=== PATIENT | male | born 1960 | race Two or more races ===

== ENCOUNTER 2016-08-25 09:53 | Inpatient (IN) | payer OTHER ==
[2016-08-25 10:46] VITALS: BMI 22.1
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
[2016-08-25] MEDS ORDERED: chlordiazePOXIDE HCL 25 MG CAPSULE PO PRN (13:28)
[2016-08-25] MEDS ORDERED: P-EPHED 60MG/TRIPROLIDI 2.5MG TABLET PO PRN (13:28)
[2016-08-25] MEDS ORDERED: hydrOXYzine PAMOATE 50 MG CAPSULE (FP) PO PRN (13:28)
[2016-08-25] MEDS ORDERED: MAGNESIUM CITRATE 300 ML BOTTLE PO PRN (13:28)
[2016-08-25] MEDS ORDERED: MAG HYDROX/AL HYDROX/SIMETH 30 ML UNIT-DOSE CUP PO PRN (13:28)
[2016-08-25] MEDS ORDERED: chlordiazePOXIDE HCL 25 MG CAPSULE PO ONE (13:28)
[2016-08-25] MEDS ORDERED: MAGNESIUM HYDROX 2400MG/30ML ORAL SUSPENSION 30 ML CUP PO PRN (13:28)
[2016-08-25] MEDS ORDERED: LOPERAMIDE HCL 2 MG CAPSULE PO PRN (13:28)
[2016-08-25] MEDS ORDERED: METHADONE HCL 10 MG TABLET (FOR DETOX USE ONLY) PO ONE ×2 (13:28→23:00)
[2016-08-25] MEDS ORDERED: NICOTINE POLACRILEX 2 MG GUM BC PRN (13:28)
[2016-08-25] MEDS ORDERED: IBUPROFEN 400 MG TABLET (FP) PO PRN (13:28)
[2016-08-25] MEDS ORDERED: ACETAMINOPHEN 325 MG TABLET (FP) PO PRN (13:28)
[2016-08-25] MEDS: NICOTINE 14 MG/24 HOURS TOPICAL PATCH TD SCH (14:15)
[2016-08-25] MEDS: chlordiazePOXIDE HCL 25 MG CAPSULE PO SCH ×2 (17:35→22:25)
[2016-08-25] MEDS: guaiFENesin/D-METHORPHAN HB 10 ML UNIT-DOSE CUPS PO PRN ×2 (17:35→23:46)
[2016-08-25 17:42] LABS: URINE APPEARANCE CLEAR; URINE BILIRUBIN NEGATIVE (NEGATIVE); URINE BLOOD NEGATIVE (NEGATIVE); URINE COLOR DKYELLOW; URINE GLUCOSE (UA) NEGATIVE (NEGATIVE); URINE KETONE TRACE (NEGATIVE); URINE LEUK ESTERASE NEGATIVE (NEGATIVE); URINE NITRITE NEGATIVE (NEGATIVE); URINE PROTEIN 1+ (NEGATIVE); URINE UROBILINOGEN 2.0 E.U/dl E.U./dl (0.2-1.0)
[2016-08-25 17:45] LABS: URINE MUCUS RARE; URINE RBC 3 /hpf (0-3); URINE WBC <1 /hpf (3-5)
--- NOTE | 2016-08-25 18:42 | EKG ---
Test Reason : Blood Pressure : / mmHG Vent. Rate : 071 BPM Atrial Rate : 071 BPM P-R Int : 148 ms QRS Dur : 096 ms QT Int : 392 ms P-R-T Axes : 064 071 059 degrees QTc Int : 425 ms NORMAL SINUS RHYTHM NORMAL ECG NO PREVIOUS ECGS AVAILABLE Confirmed by JESUS AVALOS, FRED ([id number]) on 08/25/2016 6:41:54 PM Referred By: Confirmed By:FRED LEE MD
[2016-08-25] MEDS: diphenhydrAMINE HCL 50 MG CAPSULE PO PRN (22:24)
[2016-08-25] MEDS: THIAMINE HCL 100 MG TABLET (FP) PO SCH (22:24)
[2016-08-26] MEDS: diphenhydrAMINE HCL 50 MG CAPSULE PO PRN ×2 (00:57→22:23)
[2016-08-26] MEDS: chlordiazePOXIDE HCL 25 MG CAPSULE PO SCH ×4 (05:25→22:22)
[2016-08-26] MEDS: guaiFENesin/D-METHORPHAN HB 10 ML UNIT-DOSE CUPS PO PRN ×3 (05:26→22:23)
[2016-08-26] MEDS ORDERED: METHADONE HCL 10 MG TABLET (FOR DETOX USE ONLY) PO SCH (10:00)
[2016-08-26 10:08] LABS: MCH 31.7 pg (25.7-33.7); MCHC 32.6 g/dl (32.0-35.9); MEAN CELL VOLUME 97.2 fl (80-96); MEAN PLT VOLUME 7.9 fl (7.5-11.1); PLATELET COUNT 321 K/MM3 (134-434); RDW 13.5 % (11.9-15.9); WHITE BLOOD COUNT 14.3 K/mm3 (4.0-10.0)
--- NOTE | 2016-08-26 10:18 | PN ---
S CIWA - CIWA Score Nausea/Vomitin Muscle Tremors: 3 Anxiety: 4-Mod. Anxious/Guarded Agitation: 4-Moderately Restless Paroxysmal Sweats: 3 Orientation: 0-Oriented Tacttile Disturbances: 0-None Auditory Disturbances: 0-None Visual Disturbances: 0-None Headache: 0-None Present CIWA-Ar Total Score: 16 BHS COWS - Scale Resting Pulse: 1= [place] 81-100 Sweatin=Flushed/Facial Moisture Restless Observation: 1= Difficult to Sit Still Pupil Size: 0= Normal to Room Light Bone or Joint Aches: 1= Mild Discomfort Runny Nose/ Eye Tearin= Runny Nose/Eyes GI Upset > 30mins: 2= Nausea/Diarrhea Tremor Observation of Outstretched Hands: 2= Slight Tremor Visible Yawning Observation: 1= 1-2x During Session Anxiety or Irritability: 2=Irritable/Anxious Goose Flesh Skin: 0=Smooth Skin COWS Score: 14 S Progress Note (SOAP) Subjective: Anxiety,tremors,sweating,interrupted sleep,restless,nausea,runny nose. Objective: 08/26/16 10:17 Last Vital Signs Temp Pulse Resp BP Pulse Ox 97.4 F L 99 H 20 109/73 08/26/16 09:35 08/26/16 09:35 08/26/16 09:35 08/26/16 09:35 Laboratory Tests 08/25/16 08/26/16 17:29 07:00 WBC 14.3 H D RBC 4.52 Hgb 14.3 Hct 43.9 MCV 97.2 H MCHC 32.6 RDW 13.5 Plt Count 321 MPV 7.9 Urine Color Dkyellow Urine Appearance Clear Urine pH 6.0 Ur Specific [place] 1.025 Urine Protein 1+ H Urine Glucose (UA) Negative Urine Ketones Trace H Urine Blood Negative Urine Nitrite Negative Urine Bilirubin Negative Urine Urobilinogen 2.0 e.u/dl Ur Leukocyte Esterase Negative Urine RBC 3 Urine WBC <1 Urine Mucus Rare labs noted Assessment: 08/26/16 10:17 Withdrawal sx Plan: Continue detox
[2016-08-26 10:31] LABS: ALBUMIN 3.1 g/dl (3.4-5.0); ALK PHOS 77 U/L (45-117); ANION GAP 9 (8-16); CALCIUM 8.7 mg/dL (8.5-10.1); CO2 23 mmol/L (21-32); CREATININE 0.6 mg/dL (0.7-1.3); GLUCOSE,RANDOM 105 mg/dL (74-106); SGOT/AST 47 U/L (15-37); SGPT/ALT 50 U/L (12-78)
[2016-08-26] MEDS: PRENATAL VITAMINS W/ FOLIC ACID TABLET (FP) PO SCH (10:35)
[2016-08-26] MEDS: NICOTINE 14 MG/24 HOURS TOPICAL PATCH TD SCH (10:35)
[2016-08-26] MEDS: cloNIDine HCL 0.1 MG TABLET PO SCH ×2 (10:35→22:23)
[2016-08-26 11:16] LABS: HIV 1 & 2 AB NEGATIVE; HIV 1 AGp24 NEGATIVE
[2016-08-26 13:49] LABS: SICKLE CELL SCREEN NEGATIVE (NEGATIVE)
[2016-08-26] MEDS: THIAMINE HCL 100 MG TABLET (FP) PO SCH (22:22)
[2016-08-27] MEDS: chlordiazePOXIDE HCL 25 MG CAPSULE PO SCH ×2 (05:37→10:19)
[2016-08-27] MEDS: guaiFENesin/D-METHORPHAN HB 10 ML UNIT-DOSE CUPS PO PRN ×3 (05:38→19:17)
--- NOTE | 2016-08-27 10:16 | PN ---
[facility] CIWA - CIWA Score Nausea/Vomitin-No Nausea/No Vomiting Muscle Tremors: 4-Moderate,w/Arms Extend Anxiety: 4-Mod. Anxious/Guarded Agitation: 4-Moderately Restless Paroxysmal Sweats: 1-Minimal Palms Moist Orientation: 0-Oriented Tacttile Disturbances: 3-Moderate Itch/Numb/Burn Auditory Disturbances: 0-None Visual Disturbances: 0-None Headache: 0-None Present CIWA-Ar Total Score: 16 S COWS - Scale Resting Pulse: 1= [place] 81-100 Sweatin= Chills/Flushing Restless Observation: 3= Extraneous Movement Pupil Size: 2= Moderately Dilated Bone or Joint Aches: 4=Acute Joint/Muscle Pain Runny Nose/ Eye Tearin= Nasal Congestion GI Upset > 30mins: 1= Stomach Cramp Tremor Observation of Outstretched Hands: 1= Tremor [place], Not Seen Yawning Observation: 1= 1-2x During Session Anxiety or Irritability: 2=Irritable/Anxious Goose Flesh Skin: 0=Smooth Skin COWS Score: 17 [facility] Progress Note (SOAP) Subjective: ANXIETY,SWEATS,TREMORS,INTERMITTENT SLEEP. Objective: 08/27/16 10:16 Vital Signs 08/27/16 08/27/16 08/27/16 03:30 06:29 09:22 Temperature 96.7 F L 95.9 F L Pulse Rate 92 H 85 Respiratory 18 18 18 Rate Blood Pressure 92/64 95/65 Laboratory Last Values WBC 14.3 K/mm3 (4.0-10.0) H D 08/26/16 07:00 RBC 4.52 M/mm3 (4.00-5.60) 08/26/16 07:00 Hgb 14.3 GM/dL (11.7-16.9) 08/26/16 07:00 Hct 43.9 % (35.4-49) 08/26/16 07:00 MCV 97.2 fl (80-96) H 08/26/16 07:00 MCHC 32.6 g/dl (32.0-35.9) 08/26/16 07:00 RDW 13.5 % (11.9-15.9) 08/26/16 07:00 Plt Count 321 K/MM3 (134-434) 08/26/16 07:00 MPV 7.9 fl (7.5-11.1) 08/26/16 07:00 Sickle Cell Screen Negative (NEGATIVE) 08/26/16 07:00 Sodium 137 mmol/L (136-145) 08/26/16 07:00 Potassium 3.9 mmol/L (3.5-5.1) 08/26/16 07:00 Chloride 105 mmol/L (98-107) 08/26/16 07:00 Carbon Dioxide 23 mmol/L (21-32) D 08/26/16 07:00 Anion Gap 9 (8-16) 08/26/16 07:00 BUN 11 mg/dL (7-18) D 08/26/16 07:00 Creatinine 0.6 mg/dL (0.7-1.3) L 08/26/16 07:00 Creat Clearance w eGFR > 60 (>60) 08/26/16 07:00 Random Glucose 105 mg/dL (74-106) D 08/26/16 07:00 Calcium 8.7 mg/dL (8.5-10.1) 08/26/16 07:00 Total Bilirubin 1.0 mg/dL (0.2-1.0) D 08/26/16 07:00 AST 47 U/L (15-37) H D 08/26/16 07:00 ALT 50 U/L (12-78) D 08/26/16 07:00 Alkaline Phosphatase 77 U/L (45-117) 08/26/16 07:00 Total Protein 8.0 g/dl (6.4-8.2) 08/26/16 07:00 Albumin 3.1 g/dl (3.4-5.0) L D 08/26/16 07:00 Urine Color Dkyellow 08/25/16 17:29 Urine Appearance Clear 08/25/16 17:29 Urine pH 6.0 (5.0-8.0) 08/25/16 17:29 Ur Specific [place] 1.025 (1.001-1.035) 08/25/16 17:29 Urine Protein 1+ (NEGATIVE) H 08/25/16 17:29 Urine Glucose (UA) Negative (NEGATIVE) 08/25/16 17:29 Urine Ketones Trace (NEGATIVE) H 08/25/16 17:29 Urine Blood Negative (NEGATIVE) 08/25/16 17:29 Urine Nitrite Negative (NEGATIVE) 08/25/16 17:29 Urine Bilirubin Negative (NEGATIVE) 08/25/16 17:29 Urine Urobilinogen 2.0 e.u/dl E.U./dl (0.2-1.0) 08/25/16 17:29 Ur Leukocyte Esterase Negative (NEGATIVE) 08/25/16 17:29 Urine RBC 3 /hpf (0-3) 08/25/16 17:29 Urine WBC <1 /hpf (3-5) 08/25/16 17:29 Urine Mucus Rare 08/25/16 17:29 RPR Titer Nonreactive (NONREACTIVE) 08/26/16 07:00 HIV 1&2 Antibody Screen Negative 08/26/16 07:00 HIV P24 Antigen Negative 08/26/16 07:00 Assessment: 08/27/16 10:17 WITHDRAWAL SX Plan: CONTINUE DETOX
[2016-08-27] MEDS: METHADONE HCL 5 MG TABLET (FOR DETOX USE ONLY) PO SCH (10:19)
[2016-08-27] MEDS: cloNIDine HCL 0.1 MG TABLET PO SCH ×2 (10:19→22:20)
[2016-08-27] MEDS: PRENATAL VITAMINS W/ FOLIC ACID TABLET (FP) PO SCH (10:19)
[2016-08-27] MEDS: NICOTINE 14 MG/24 HOURS TOPICAL PATCH TD SCH (10:19)
[2016-08-27] MEDS: chlordiazePOXIDE 5 MG CAPSULE PO SCH ×2 (17:29→22:20)
[2016-08-27] MEDS: THIAMINE HCL 100 MG TABLET (FP) PO SCH (22:21)
[2016-08-28] MEDS: guaiFENesin/D-METHORPHAN HB 10 ML UNIT-DOSE CUPS PO PRN ×3 (01:40→16:57)
[2016-08-28] MEDS: MENTHOL/PHENOL 1 EACH UD MM PRN ×2 (01:43→10:21)
[2016-08-28] MEDS: chlordiazePOXIDE 5 MG CAPSULE PO SCH ×2 (05:39→10:18)
[2016-08-28] MEDS: PRENATAL VITAMINS W/ FOLIC ACID TABLET (FP) PO SCH (10:18)
[2016-08-28] MEDS: METHADONE HCL 5 MG TABLET (FOR DETOX USE ONLY) PO SCH (10:18)
[2016-08-28] MEDS: NICOTINE 14 MG/24 HOURS TOPICAL PATCH TD SCH (10:18)
[2016-08-28] MEDS: cloNIDine HCL 0.1 MG TABLET PO SCH ×2 (10:18→22:26)
--- NOTE | 2016-08-28 11:59 | PN ---
BHS Progress Note (SOAP) Subjective: DECREASED ANXIETY,SWEATS,TREMORS. Objective: 08/28/16 11:58 Vital Signs Temperature 97.6 F 08/28/16 10:19 Pulse Rate 91 H 08/28/16 10:19 Respiratory Rate 18 08/28/16 10:19 Blood Pressure 102/71 08/28/16 10:19 O2 Sat by Pulse Oximetry (%) Laboratory Last Values WBC 14.3 K/mm3 (4.0-10.0) H D 08/26/16 07:00 RBC 4.52 M/mm3 (4.00-5.60) 08/26/16 07:00 Hgb 14.3 GM/dL (11.7-16.9) 08/26/16 07:00 Hct 43.9 % (35.4-49) 08/26/16 07:00 MCV 97.2 fl (80-96) H 08/26/16 07:00 MCHC 32.6 g/dl (32.0-35.9) 08/26/16 07:00 RDW 13.5 % (11.9-15.9) 08/26/16 07:00 Plt Count 321 K/MM3 (134-434) 08/26/16 07:00 MPV 7.9 fl (7.5-11.1) 08/26/16 07:00 Sickle Cell Screen Negative (NEGATIVE) 08/26/16 07:00 Sodium 137 mmol/L (136-145) 08/26/16 07:00 Potassium 3.9 mmol/L (3.5-5.1) 08/26/16 07:00 Chloride 105 mmol/L (98-107) 08/26/16 07:00 Carbon Dioxide 23 mmol/L (21-32) D 08/26/16 07:00 Anion Gap 9 (8-16) 08/26/16 07:00 BUN 11 mg/dL (7-18) D 08/26/16 07:00 Creatinine 0.6 mg/dL (0.7-1.3) L 08/26/16 07:00 Creat Clearance w eGFR > 60 (>60) 08/26/16 07:00 Random Glucose 105 mg/dL (74-106) D 08/26/16 07:00 Calcium 8.7 mg/dL (8.5-10.1) 08/26/16 07:00 Total Bilirubin 1.0 mg/dL (0.2-1.0) D 08/26/16 07:00 AST 47 U/L (15-37) H D 08/26/16 07:00 ALT 50 U/L (12-78) D 08/26/16 07:00 Alkaline Phosphatase 77 U/L (45-117) 08/26/16 07:00 Total Protein 8.0 g/dl (6.4-8.2) 08/26/16 07:00 Albumin 3.1 g/dl (3.4-5.0) L D 08/26/16 07:00 Urine Color Dkyellow 08/25/16 17:29 Urine Appearance Clear 08/25/16 17:29 Urine pH 6.0 (5.0-8.0) 08/25/16 17:29 Ur Specific [place] 1.025 (1.001-1.035) 08/25/16 17:29 Urine Protein 1+ (NEGATIVE) H 08/25/16 17:29 Urine Glucose (UA) Negative (NEGATIVE) 08/25/16 17:29 Urine Ketones Trace (NEGATIVE) H 08/25/16 17:29 Urine Blood Negative (NEGATIVE) 08/25/16 17:29 Urine Nitrite Negative (NEGATIVE) 08/25/16 17:29 Urine Bilirubin Negative (NEGATIVE) 08/25/16 17:29 Urine Urobilinogen 2.0 e.u/dl E.U./dl (0.2-1.0) 08/25/16 17:29 Ur Leukocyte Esterase Negative (NEGATIVE) 08/25/16 17:29 Urine RBC 3 /hpf (0-3) 08/25/16 17:29 Urine WBC <1 /hpf (3-5) 08/25/16 17:29 Urine Mucus Rare 08/25/16 17:29 RPR Titer Nonreactive (NONREACTIVE) 08/26/16 07:00 HIV 1&2 Antibody Screen Negative 08/26/16 07:00 HIV P24 Antigen Negative 08/26/16 07:00 Assessment: 08/28/16 11:59 WITHDRAWAL SX Plan: CONTINUE DETOX
[2016-08-28] MEDS: chlordiazePOXIDE HCL 10 MG CAPSULE PO SCH ×2 (16:55→22:26)
[2016-08-28] MEDS: THIAMINE HCL 100 MG TABLET (FP) PO SCH (22:25)
[2016-08-28] MEDS: HYDROCORTISONE 1% TOPICAL CREAM 30 GM TUBE TP SCH (22:25)
[2016-08-29] MEDS: guaiFENesin/D-METHORPHAN HB 10 ML UNIT-DOSE CUPS PO PRN ×4 (02:40→23:01)
[2016-08-29] MEDS: MENTHOL/PHENOL 1 EACH UD MM PRN ×3 (02:40→23:02)
[2016-08-29] MEDS: chlordiazePOXIDE HCL 10 MG CAPSULE PO SCH ×2 (05:43→10:38)
[2016-08-29] MEDS: HYDROCORTISONE 1% TOPICAL CREAM 30 GM TUBE TP SCH ×3 (07:00→23:01)
--- NOTE | 2016-08-29 09:36 | PN ---
BHS Progress Note (SOAP) Subjective: Sweating,interrupted sleep,restless Objective: 08/29/16 09:35 Vital Signs - 8 hr 08/29/16 06:40 Temperature 98.1 F Pulse Rate 90 Respiratory 18 Rate Blood Pressure 93/60 Laboratory Last Values WBC 14.3 K/mm3 (4.0-10.0) H D 08/26/16 07:00 RBC 4.52 M/mm3 (4.00-5.60) 08/26/16 07:00 Hgb 14.3 GM/dL (11.7-16.9) 08/26/16 07:00 Hct 43.9 % (35.4-49) 08/26/16 07:00 MCV 97.2 fl (80-96) H 08/26/16 07:00 MCHC 32.6 g/dl (32.0-35.9) 08/26/16 07:00 RDW 13.5 % (11.9-15.9) 08/26/16 07:00 Plt Count 321 K/MM3 (134-434) 08/26/16 07:00 MPV 7.9 fl (7.5-11.1) 08/26/16 07:00 Sickle Cell Screen Negative (NEGATIVE) 08/26/16 07:00 Sodium 137 mmol/L (136-145) 08/26/16 07:00 Potassium 3.9 mmol/L (3.5-5.1) 08/26/16 07:00 Chloride 105 mmol/L (98-107) 08/26/16 07:00 Carbon Dioxide 23 mmol/L (21-32) D 08/26/16 07:00 Anion Gap 9 (8-16) 08/26/16 07:00 BUN 11 mg/dL (7-18) D 08/26/16 07:00 Creatinine 0.6 mg/dL (0.7-1.3) L 08/26/16 07:00 Creat Clearance w eGFR > 60 (>60) 08/26/16 07:00 Random Glucose 105 mg/dL (74-106) D 08/26/16 07:00 Calcium 8.7 mg/dL (8.5-10.1) 08/26/16 07:00 Total Bilirubin 1.0 mg/dL (0.2-1.0) D 08/26/16 07:00 AST 47 U/L (15-37) H D 08/26/16 07:00 ALT 50 U/L (12-78) D 08/26/16 07:00 Alkaline Phosphatase 77 U/L (45-117) 08/26/16 07:00 Total Protein 8.0 g/dl (6.4-8.2) 08/26/16 07:00 Albumin 3.1 g/dl (3.4-5.0) L D 08/26/16 07:00 Urine Color Dkyellow 08/25/16 17:29 Urine Appearance Clear 08/25/16 17:29 Urine pH 6.0 (5.0-8.0) 08/25/16 17:29 Ur Specific [place] 1.025 (1.001-1.035) 08/25/16 17:29 Urine Protein 1+ (NEGATIVE) H 08/25/16 17:29 Urine Glucose (UA) Negative (NEGATIVE) 08/25/16 17:29 Urine Ketones Trace (NEGATIVE) H 08/25/16 17:29 Urine Blood Negative (NEGATIVE) 08/25/16 17:29 Urine Nitrite Negative (NEGATIVE) 08/25/16 17:29 Urine Bilirubin Negative (NEGATIVE) 08/25/16 17:29 Urine Urobilinogen 2.0 e.u/dl E.U./dl (0.2-1.0) 08/25/16 17:29 Ur Leukocyte Esterase Negative (NEGATIVE) 08/25/16 17:29 Urine RBC 3 /hpf (0-3) 08/25/16 17:29 Urine WBC <1 /hpf (3-5) 08/25/16 17:29 Urine Mucus Rare 08/25/16 17:29 RPR Titer Nonreactive (NONREACTIVE) 08/26/16 07:00 HIV 1&2 Antibody Screen Negative 08/26/16 07:00 HIV P24 Antigen Negative 08/26/16 07:00 labs noted Assessment: 08/29/16 09:36 Continue detox
[2016-08-29] MEDS ORDERED: METHADONE HCL 10 MG TABLET (FOR DETOX USE ONLY) PO SCH (10:00)
[2016-08-29] MEDS: PRENATAL VITAMINS W/ FOLIC ACID TABLET (FP) PO SCH (10:38)
[2016-08-29] MEDS: cloNIDine HCL 0.1 MG TABLET PO SCH ×2 (10:38→22:19)
[2016-08-29] MEDS: NICOTINE 14 MG/24 HOURS TOPICAL PATCH TD SCH (10:39)
[2016-08-29] MEDS: THIAMINE HCL 100 MG TABLET (FP) PO SCH (22:19)
[2016-08-29] MEDS: diphenhydrAMINE HCL 50 MG CAPSULE PO PRN (22:20)
[2016-08-30] MEDS: MENTHOL/PHENOL 1 EACH UD MM PRN ×2 (05:35→13:07)
[2016-08-30] MEDS: guaiFENesin/D-METHORPHAN HB 10 ML UNIT-DOSE CUPS PO PRN ×2 (05:35→13:07)
[2016-08-30] MEDS ORDERED: METHADONE HCL 5 MG TABLET (FOR DETOX USE ONLY) PO SCH (06:00)
[2016-08-30] MEDS: HYDROCORTISONE 1% TOPICAL CREAM 30 GM TUBE TP SCH (06:26)
[2016-08-30 06:36] VITALS: TEMP 97.6
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
[2016-08-30 10:03] VITALS: BP 90/56; PULSE 82
[2016-08-30] MEDS: PRENATAL VITAMINS W/ FOLIC ACID TABLET (FP) PO SCH (10:25)
[2016-08-30] MEDS: NICOTINE 14 MG/24 HOURS TOPICAL PATCH TD SCH (10:25)
[2016-08-30] MEDS: cloNIDine HCL 0.1 MG TABLET PO SCH (10:25)
== END 2016-08-30 13:13 | disposition other institution (70) | DRG 773 ==
LOC: YASAS 09:53 → Y3N 12:38
PROVIDERS: ADMIT Internal Medicine; ATTEND Internal Medicine
PROC: HZ2ZZZZ Detoxification Services for Substance Abuse Treatment (ICD-10-PCS; principal; 2016-08-30)
DX: F11.23 Opioid dependence with withdrawal (principal); F10.230 Alcohol dependence with withdrawal, uncomplicated; F17.210 Nicotine dependence, cigarettes, uncomplicated; B18.2 Chronic viral hepatitis C; Z87.828 Personal history of other (healed) physical injury and trauma
CPT/HCPCS: 36415; 80053; 81003; 81015; 85027; 85660; 86593; 87389; 93005; 93010

== ENCOUNTER 2016-08-30 13:09 | Inpatient (IN) | payer OTHER ==
[2016-08-30 14:15] VITALS: BMI 21.8
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
[2016-08-30] MEDS ORDERED: NICOTINE POLACRILEX 2 MG GUM BUC PRN (15:13)
[2016-08-30] MEDS ORDERED: IBUPROFEN 400 MG TABLET (FP) PO PRN (15:13)
[2016-08-30] MEDS ORDERED: guaiFENesin/D-METHORPHAN HB 10 ML UNIT-DOSE CUPS PO PRN (15:13)
[2016-08-30] MEDS ORDERED: P-EPHED 60MG/TRIPROLIDI 2.5MG TABLET PO PRN (15:13)
[2016-08-30] MEDS ORDERED: MAGNESIUM HYDROX 2400MG/30ML ORAL SUSPENSION 30 ML CUP PO PRN (15:13)
[2016-08-30] MEDS ORDERED: MAG HYDROX/AL HYDROX/SIMETH 30 ML UNIT-DOSE CUP PO PRN (15:13)
[2016-08-30] MEDS ORDERED: MAGNESIUM CITRATE 300 ML BOTTLE PO PRN (15:13)
[2016-08-30] MEDS ORDERED: ACETAMINOPHEN 325 MG TABLET (FP) PO PRN (15:13)
[2016-08-30] MEDS ORDERED: LOPERAMIDE HCL 2 MG CAPSULE PO PRN (15:13)
--- NOTE | 2016-08-30 15:15 | HP ---
MARY AVALOS Rehab Assess/Revision - Admission History Admitted to Rehab from: [facility] Date of Admission to Rehab: 08/30/16 - Vital signs Vital Signs: Vital Signs Period Temp Pulse Resp BP Sys/Travis Pulse Ox Last 24 Hr 98 F 87 18 104/64 - Findings Detox History & Physical reviewed: Yes Concur with findings: Yes
[2016-08-30] MEDS: MENTHOL/PHENOL 1 EACH UD MM PRN (16:50)
[2016-08-30] MEDS: THIAMINE HCL 100 MG TABLET (FP) PO SCH (21:47)
[2016-08-31] MEDS: MENTHOL/PHENOL 1 EACH UD MM PRN ×3 (00:19→21:00)
[2016-08-31] MEDS: guaiFENesin/D-METHORPHAN HB 1 EACH TAB.ER.12H PO SCH ×3 (00:35→22:00)
[2016-08-31] MEDS: diphenhydrAMINE HCL 50 MG CAPSULE PO PRN ×3 (00:38→22:01)
[2016-08-31] MEDS: guaiFENesin/D-METHORPHAN HB 10 ML UNIT-DOSE CUPS PO PRN ×2 (06:42→12:58)
[2016-08-31] MEDS: PRENATAL VITAMINS W/ FOLIC ACID TABLET (FP) PO SCH (09:45)
[2016-08-31] MEDS: NICOTINE 14 MG/24 HOURS TOPICAL PATCH TD SCH (09:46)
[2016-08-31] MEDS: HYDROCORTISONE 1% TOPICAL CREAM 30 GM TUBE TP PRN (09:47)
[2016-08-31] MEDS ORDERED: PNEUMOCOCCAL 23 VACCINE 0.5 ML VIAL IM ONE (12:00)
[2016-08-31] MEDS ORDERED: INFLUENZA VACCINE 45 MCG/0.5 ML (MDV 16-17) IM ONE (12:00)
[2016-08-31] MEDS ORDERED: PNEUMOC 13-VAL CONJ-DIP CRM/PF 0.5 ML DISP.SYRIN IM ONE (13:00)
[2016-08-31] MEDS: THIAMINE HCL 100 MG TABLET (FP) PO SCH (22:00)
[2016-09-01] MEDS: diphenhydrAMINE HCL 50 MG CAPSULE PO PRN ×2 (00:52→22:01)
[2016-09-01] MEDS: guaiFENesin/D-METHORPHAN HB 10 ML UNIT-DOSE CUPS PO PRN ×2 (06:33→19:32)
[2016-09-01] MEDS: PRENATAL VITAMINS W/ FOLIC ACID TABLET (FP) PO SCH (10:25)
[2016-09-01] MEDS: guaiFENesin/D-METHORPHAN HB 1 EACH TAB.ER.12H PO SCH ×2 (10:25→22:01)
[2016-09-01] MEDS: NICOTINE 14 MG/24 HOURS TOPICAL PATCH TD SCH (10:26)
[2016-09-01] MEDS: THIAMINE HCL 100 MG TABLET (FP) PO SCH (22:01)
[2016-09-02] MEDS: diphenhydrAMINE HCL 50 MG CAPSULE PO PRN ×2 (00:15→22:10)
[2016-09-02] MEDS: HYDROCORTISONE 1% TOPICAL CREAM 30 GM TUBE TP PRN (06:27)
[2016-09-02] MEDS: guaiFENesin/D-METHORPHAN HB 10 ML UNIT-DOSE CUPS PO PRN ×2 (06:42→18:25)
[2016-09-02] MEDS: PRENATAL VITAMINS W/ FOLIC ACID TABLET (FP) PO SCH (10:16)
[2016-09-02] MEDS: NICOTINE 14 MG/24 HOURS TOPICAL PATCH TD SCH (10:17)
[2016-09-02] MEDS: guaiFENesin/D-METHORPHAN HB 1 EACH TAB.ER.12H PO SCH ×2 (10:17→22:10)
[2016-09-02] MEDS: THIAMINE HCL 100 MG TABLET (FP) PO SCH (22:10)
[2016-09-03] MEDS: diphenhydrAMINE HCL 50 MG CAPSULE PO PRN ×2 (01:04→21:59)
[2016-09-03] MEDS: guaiFENesin/D-METHORPHAN HB 10 ML UNIT-DOSE CUPS PO PRN ×3 (01:04→22:00)
[2016-09-03] MEDS: MENTHOL/PHENOL 1 EACH UD MM PRN ×2 (06:16→10:04)
[2016-09-03] MEDS: HYDROCORTISONE 1% TOPICAL CREAM 30 GM TUBE TP PRN (07:35)
[2016-09-03] MEDS: PRENATAL VITAMINS W/ FOLIC ACID TABLET (FP) PO SCH (10:01)
[2016-09-03] MEDS: NICOTINE 14 MG/24 HOURS TOPICAL PATCH TD SCH (10:03)
[2016-09-03] MEDS: guaiFENesin/D-METHORPHAN HB 1 EACH TAB.ER.12H PO SCH ×2 (12:12→22:01)
[2016-09-03 14:48] LABS: BASOPHIL 1.1 % (0-2.0); EOSINOPHIL 0.8 % (0-4.5); MCH 32.1 pg (25.7-33.7); MCHC 33.2 g/dl (32.0-35.9); MEAN CELL VOLUME 96.9 fl (80-96); MEAN PLT VOLUME 6.9 fl (7.5-11.1); PLATELET COUNT 583 K/MM3 (134-434); RDW 12.8 % (11.9-15.9); WHITE BLOOD COUNT 8.6 K/mm3 (4.0-10.0)
[2016-09-03 15:14] LABS: COCKROFT - GAULT 99.06; CREATININE 0.8 mg/dL (0.7-1.3)
[2016-09-03] MEDS: THIAMINE HCL 100 MG TABLET (FP) PO SCH (21:59)
[2016-09-04] MEDS: guaiFENesin/D-METHORPHAN HB 10 ML UNIT-DOSE CUPS PO PRN (06:10)
[2016-09-04] MEDS: MENTHOL/PHENOL 1 EACH UD MM PRN (06:10)
[2016-09-04] MEDS: PRENATAL VITAMINS W/ FOLIC ACID TABLET (FP) PO SCH (09:34)
[2016-09-04] MEDS: guaiFENesin/D-METHORPHAN HB 1 EACH TAB.ER.12H PO SCH ×2 (09:34→22:10)
[2016-09-04] MEDS: NICOTINE 14 MG/24 HOURS TOPICAL PATCH TD SCH (09:35)
[2016-09-04] MEDS: HYDROCORTISONE 1% TOPICAL CREAM 30 GM TUBE TP PRN (09:36)
[2016-09-04] MEDS: THIAMINE HCL 100 MG TABLET (FP) PO SCH (22:10)
[2016-09-04] MEDS: diphenhydrAMINE HCL 50 MG CAPSULE PO PRN (23:03)
[2016-09-05] MEDS: diphenhydrAMINE HCL 50 MG CAPSULE PO PRN ×2 (00:47→22:01)
[2016-09-05] MEDS: guaiFENesin/D-METHORPHAN HB 10 ML UNIT-DOSE CUPS PO PRN ×3 (06:31→20:07)
[2016-09-05] MEDS: HYDROCORTISONE 1% TOPICAL CREAM 30 GM TUBE TP PRN (06:59)
[2016-09-05] MEDS: PRENATAL VITAMINS W/ FOLIC ACID TABLET (FP) PO SCH (10:42)
[2016-09-05] MEDS: guaiFENesin/D-METHORPHAN HB 1 EACH TAB.ER.12H PO SCH (10:42)
[2016-09-05] MEDS: NICOTINE 14 MG/24 HOURS TOPICAL PATCH TD SCH (10:43)
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
[2016-09-05] MEDS: THIAMINE HCL 100 MG TABLET (FP) PO SCH (22:00)
[2016-09-06] MEDS: diphenhydrAMINE HCL 50 MG CAPSULE PO PRN (01:14)
[2016-09-06] MEDS: PRENATAL VITAMINS W/ FOLIC ACID TABLET (FP) PO SCH (10:19)
[2016-09-06] MEDS: NICOTINE 14 MG/24 HOURS TOPICAL PATCH TD SCH (10:19)
[2016-09-06] MEDS: guaiFENesin/D-METHORPHAN HB 10 ML UNIT-DOSE CUPS PO PRN ×3 (10:20→21:59)
[2016-09-06] MEDS: MENTHOL/PHENOL 1 EACH UD MM PRN ×3 (10:21→21:59)
[2016-09-06] MEDS: traZODone HCL 100 MG TABLET (FP) PO SCH (21:57)
[2016-09-06] MEDS: THIAMINE HCL 100 MG TABLET (FP) PO SCH (21:57)
[2016-09-07] MEDS: guaiFENesin/D-METHORPHAN HB 10 ML UNIT-DOSE CUPS PO PRN ×3 (11:01→23:09)
[2016-09-07] MEDS: NICOTINE 14 MG/24 HOURS TOPICAL PATCH TD SCH (11:01)
[2016-09-07] MEDS: PRENATAL VITAMINS W/ FOLIC ACID TABLET (FP) PO SCH (11:01)
[2016-09-07] MEDS: MENTHOL/PHENOL 1 EACH UD MM PRN ×3 (11:04→23:10)
[2016-09-07] MEDS ORDERED: traZODone HCL 50 MG TABLET (FP) ONE (19:27)
[2016-09-07] MEDS: traZODone HCL 100 MG TABLET (FP) PO SCH (21:47)
[2016-09-07] MEDS: THIAMINE HCL 100 MG TABLET (FP) PO SCH (21:48)
[2016-09-07] MEDS: HYDROCORTISONE 1% TOPICAL CREAM 30 GM TUBE TP PRN (21:48)
[2016-09-07] MEDS: diphenhydrAMINE HCL 50 MG CAPSULE PO PRN (23:45)
[2016-09-08] MEDS: guaiFENesin/D-METHORPHAN HB 10 ML UNIT-DOSE CUPS PO PRN ×2 (06:16→14:27)
[2016-09-08] MEDS: MENTHOL/PHENOL 1 EACH UD MM PRN ×2 (06:17→14:27)
[2016-09-08] MEDS: PRENATAL VITAMINS W/ FOLIC ACID TABLET (FP) PO SCH (10:46)
[2016-09-08] MEDS: NICOTINE 14 MG/24 HOURS TOPICAL PATCH TD SCH (10:47)
[2016-09-08] MEDS: diphenhydrAMINE HCL 50 MG CAPSULE PO PRN (21:50)
[2016-09-08] MEDS: traZODone HCL 100 MG TABLET (FP) PO SCH (21:50)
[2016-09-08] MEDS: THIAMINE HCL 100 MG TABLET (FP) PO SCH (21:50)
[2016-09-09] MEDS: NICOTINE 14 MG/24 HOURS TOPICAL PATCH TD SCH (10:43)
[2016-09-09] MEDS: PRENATAL VITAMINS W/ FOLIC ACID TABLET (FP) PO SCH (10:43)
[2016-09-09] MEDS: MENTHOL/PHENOL 1 EACH UD MM PRN ×2 (10:44→22:01)
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
[2016-09-09] MEDS: CLOTRIMAZOLE 1% 10 ML SOLUTION TP SCH (21:58)
[2016-09-09] MEDS: THIAMINE HCL 100 MG TABLET (FP) PO SCH (21:58)
[2016-09-09] MEDS: guaiFENesin/D-METHORPHAN HB 10 ML UNIT-DOSE CUPS PO PRN (22:00)
[2016-09-10] MEDS: diphenhydrAMINE HCL 50 MG CAPSULE PO PRN ×2 (00:17→01:22)
[2016-09-10] MEDS: guaiFENesin/D-METHORPHAN HB 10 ML UNIT-DOSE CUPS PO PRN ×2 (05:54→21:52)
[2016-09-10] MEDS: MENTHOL/PHENOL 1 EACH UD MM PRN ×2 (05:54→21:52)
[2016-09-10] MEDS: PRENATAL VITAMINS W/ FOLIC ACID TABLET (FP) PO SCH (10:41)
[2016-09-10] MEDS: NICOTINE 14 MG/24 HOURS TOPICAL PATCH TD SCH (10:42)
[2016-09-10] MEDS: CLOTRIMAZOLE 1% 10 ML SOLUTION TP SCH ×2 (10:42→21:52)
[2016-09-10] MEDS ORDERED: diphenhydrAMINE HCL 50 MG CAPSULE PO PRN (15:32)
--- NOTE | 2016-09-10 15:34 | PN ---
S Progress Note Note: patient complaining of insomnia Benadryl 50 mg not effective, will increase 100 mg po hs, continue to monitor .
[2016-09-10] MEDS: THIAMINE HCL 100 MG TABLET (FP) PO SCH (21:51)
[2016-09-11] MEDS: NICOTINE 14 MG/24 HOURS TOPICAL PATCH TD SCH (10:33)
[2016-09-11] MEDS: PRENATAL VITAMINS W/ FOLIC ACID TABLET (FP) PO SCH (10:33)
[2016-09-11] MEDS: CLOTRIMAZOLE 1% 10 ML SOLUTION TP SCH ×2 (10:33→21:47)
[2016-09-11] MEDS: guaiFENesin/D-METHORPHAN HB 10 ML UNIT-DOSE CUPS PO PRN (10:34)
--- NOTE | 2016-09-11 11:33 | PN ---
[facility] Progress Note Note: patient continues to complain of insomnia, discussed indications and properties of Belsomra, patient agreed to start.
[2016-09-11] MEDS: THIAMINE HCL 100 MG TABLET (FP) PO SCH (21:45)
[2016-09-11] MEDS: SUVOREXANT 10 MG TABLET PO PRN (21:46)
[2016-09-11] MEDS ORDERED: diphenhydrAMINE HCL 50 MG CAPSULE PO PRN (22:00)
[2016-09-12] MEDS: MENTHOL/PHENOL 1 EACH UD MM PRN ×2 (06:43→22:10)
[2016-09-12] MEDS: guaiFENesin/D-METHORPHAN HB 10 ML UNIT-DOSE CUPS PO PRN ×2 (06:43→22:10)
[2016-09-12] MEDS: PRENATAL VITAMINS W/ FOLIC ACID TABLET (FP) PO SCH (10:03)
[2016-09-12] MEDS: NICOTINE 14 MG/24 HOURS TOPICAL PATCH TD SCH (10:03)
[2016-09-12] MEDS: CLOTRIMAZOLE 1% 10 ML SOLUTION TP SCH ×2 (10:05→22:08)
[2016-09-12] MEDS: THIAMINE HCL 100 MG TABLET (FP) PO SCH (22:04)
[2016-09-12] MEDS: SUVOREXANT 10 MG TABLET PO PRN (22:08)
[2016-09-13] MEDS: PRENATAL VITAMINS W/ FOLIC ACID TABLET (FP) PO SCH (10:15)
[2016-09-13] MEDS: CLOTRIMAZOLE 1% 10 ML SOLUTION TP SCH ×2 (10:16→22:00)
[2016-09-13] MEDS: NICOTINE 14 MG/24 HOURS TOPICAL PATCH TD SCH (10:16)
[2016-09-13] MEDS: guaiFENesin/D-METHORPHAN HB 10 ML UNIT-DOSE CUPS PO PRN ×2 (10:17→21:58)
[2016-09-13] MEDS: MENTHOL/PHENOL 1 EACH UD MM PRN (10:18)
[2016-09-13] MEDS: THIAMINE HCL 100 MG TABLET (FP) PO SCH (21:57)
[2016-09-13] MEDS: SUVOREXANT 10 MG TABLET PO PRN (21:59)
[2016-09-14] MEDS: guaiFENesin/D-METHORPHAN HB 10 ML UNIT-DOSE CUPS PO PRN (05:56)
[2016-09-14] MEDS: MENTHOL/PHENOL 1 EACH UD MM PRN ×2 (05:56→21:58)
[2016-09-14] MEDS: PRENATAL VITAMINS W/ FOLIC ACID TABLET (FP) PO SCH (10:37)
[2016-09-14] MEDS: CLOTRIMAZOLE 1% 10 ML SOLUTION TP SCH ×2 (10:38→21:59)
[2016-09-14] MEDS: NICOTINE 14 MG/24 HOURS TOPICAL PATCH TD SCH (10:38)
[2016-09-14] MEDS: THIAMINE HCL 100 MG TABLET (FP) PO SCH (21:57)
[2016-09-14] MEDS: SUVOREXANT 10 MG TABLET PO PRN (21:58)
[2016-09-15] MEDS: PRENATAL VITAMINS W/ FOLIC ACID TABLET (FP) PO SCH (10:39)
[2016-09-15] MEDS: NICOTINE 14 MG/24 HOURS TOPICAL PATCH TD SCH (10:39)
[2016-09-15] MEDS: CLOTRIMAZOLE 1% 10 ML SOLUTION TP SCH ×2 (10:40→21:54)
[2016-09-15] MEDS: MENTHOL/PHENOL 1 EACH UD MM PRN ×2 (10:41→21:55)
[2016-09-15] MEDS: guaiFENesin/D-METHORPHAN HB 10 ML UNIT-DOSE CUPS PO PRN ×2 (10:41→21:54)
[2016-09-15] MEDS: THIAMINE HCL 100 MG TABLET (FP) PO SCH (21:51)
[2016-09-16] MEDS: PRENATAL VITAMINS W/ FOLIC ACID TABLET (FP) PO SCH (10:47)
[2016-09-16] MEDS: MENTHOL/PHENOL 1 EACH UD MM PRN (10:48)
[2016-09-16] MEDS: guaiFENesin/D-METHORPHAN HB 10 ML UNIT-DOSE CUPS PO PRN (10:48)
[2016-09-16] MEDS: NICOTINE 14 MG/24 HOURS TOPICAL PATCH TD SCH (10:48)
[2016-09-16] MEDS: CLOTRIMAZOLE 1% 10 ML SOLUTION TP SCH ×2 (10:48→21:59)
[2016-09-16] MEDS: THIAMINE HCL 100 MG TABLET (FP) PO SCH (21:58)
[2016-09-17] MEDS: PRENATAL VITAMINS W/ FOLIC ACID TABLET (FP) PO SCH (10:38)
[2016-09-17] MEDS: CLOTRIMAZOLE 1% 10 ML SOLUTION TP SCH ×2 (10:38→21:59)
[2016-09-17] MEDS: NICOTINE 14 MG/24 HOURS TOPICAL PATCH TD SCH (10:38)
[2016-09-17] MEDS: THIAMINE HCL 100 MG TABLET (FP) PO SCH (21:59)
[2016-09-18] MEDS: MENTHOL/PHENOL 1 EACH UD MM PRN ×3 (06:05→22:06)
[2016-09-18] MEDS: guaiFENesin/D-METHORPHAN HB 10 ML UNIT-DOSE CUPS PO PRN (06:05)
[2016-09-18] MEDS: PRENATAL VITAMINS W/ FOLIC ACID TABLET (FP) PO SCH (10:36)
[2016-09-18] MEDS: CLOTRIMAZOLE 1% 10 ML SOLUTION TP SCH ×2 (10:36→22:04)
[2016-09-18] MEDS: NICOTINE 14 MG/24 HOURS TOPICAL PATCH TD SCH (10:36)
[2016-09-18] MEDS: THIAMINE HCL 100 MG TABLET (FP) PO SCH (22:04)
[2016-09-19 06:49] VITALS: BP 119/69; PULSE 78; TEMP 98.2
[2016-09-19] MEDS: PRENATAL VITAMINS W/ FOLIC ACID TABLET (FP) PO SCH (10:17)
[2016-09-19] MEDS: guaiFENesin/D-METHORPHAN HB 10 ML UNIT-DOSE CUPS PO PRN (10:18)
[2016-09-19] MEDS: CLOTRIMAZOLE 1% 10 ML SOLUTION TP SCH (10:18)
[2016-09-19] MEDS: MENTHOL/PHENOL 1 EACH UD MM PRN (10:19)
[2016-09-19] MEDS: HYDROCORTISONE 1% TOPICAL CREAM 30 GM TUBE TP PRN (10:19)
[2016-09-19] MEDS: NICOTINE 14 MG/24 HOURS TOPICAL PATCH TD SCH (10:19)
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
== END 2016-09-19 10:45 | disposition home or self-care (01) | DRG 772 ==
LOC: YASAS 13:09 → Y5N 13:15
PROVIDERS: ADMIT Psychiatry & Neurology Psychiatry; ATTEND Psychiatry & Neurology Psychiatry
PROC: HZ42ZZZ Group Counseling for Substance Abuse Treatment, Cognitive-Behavioral (ICD-10-PCS; principal; 2016-08-30)
DX: F11.20 Opioid dependence, uncomplicated (principal); F10.20 Alcohol dependence, uncomplicated; F17.210 Nicotine dependence, cigarettes, uncomplicated; B18.2 Chronic viral hepatitis C; G47.00 Insomnia, unspecified; Z87.828 Personal history of other (healed) physical injury and trauma
CPT/HCPCS: 36415; 71020-TC; 80048; 85025

== ENCOUNTER 2018-03-24 08:14 | Inpatient (IN) | payer OTHER ==
[2018-03-24 09:05] VITALS: BMI 23.4
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
[2018-03-24] MEDS ORDERED: MAG HYDROX/AL HYDROX/SIMETH 30 ML UNIT-DOSE CUP PO PRN (09:36)
[2018-03-24] MEDS ORDERED: MENTHOL/PHENOL 1 EACH UD MM PRN (09:36)
[2018-03-24] MEDS ORDERED: chlordiazePOXIDE HCL 25 MG CAPSULE PO PRN (09:36)
[2018-03-24] MEDS ORDERED: guaiFENesin/D-METHORPHAN HB 10 ML UNIT-DOSE CUPS PO PRN (09:36)
[2018-03-24] MEDS ORDERED: MAGNESIUM HYDROX 2400MG/30ML ORAL SUSPENSION 30 ML CUP PO PRN (09:36)
[2018-03-24] MEDS ORDERED: IBUPROFEN 400 MG TABLET (FP) PO PRN (09:36)
[2018-03-24] MEDS ORDERED: MAGNESIUM CITRATE 300 ML BOTTLE PO PRN (09:36)
[2018-03-24] MEDS ORDERED: P-EPHED 60MG/TRIPROLIDI 2.5MG TABLET PO PRN (09:36)
[2018-03-24] MEDS ORDERED: LOPERAMIDE HCL 2 MG CAPSULE PO PRN (09:36)
[2018-03-24] MEDS ORDERED: ACETAMINOPHEN 325 MG TABLET (FP) PO PRN (09:36)
[2018-03-24] MEDS ORDERED: METHADONE HCL 10 MG TABLET (FOR DETOX USE ONLY) PO ONE ×2 (10:30→23:00)
[2018-03-24] MEDS: chlordiazePOXIDE HCL 25 MG CAPSULE PO SCH ×3 (11:09→22:42)
[2018-03-24] MEDS: cloNIDine HCL 0.1 MG TABLET PO SCH ×2 (11:11→22:42)
[2018-03-24] MEDS: PRENATAL VITAMINS W/ FOLIC ACID TABLET (FP) PO SCH (11:11)
[2018-03-24 17:43] LABS: URINE APPEARANCE CLEAR; URINE BILIRUBIN NEGATIVE (<2.0 mg/dL); URINE COLOR YELLOW; URINE GLUCOSE (UA) NEGATIVE (NEGATIVE); URINE KETONE NEGATIVE (NEGATIVE); URINE LEUK ESTERASE NEGATIVE (NEGATIVE); URINE NITRITE NEGATIVE (NEGATIVE); URINE PROTEIN NEGATIVE (NEGATIVE); URINE UROBILINOGEN NEGATIVE mg/dL (0.2-1.0)
[2018-03-24] MEDS ORDERED: MELATONIN 5 MG TABLETS PO PRN (22:00)
[2018-03-24] MEDS: THIAMINE HCL 100 MG TABLET (FP) PO SCH (22:42)
[2018-03-24] MEDS: CYCLOBENZAPRINE HCL 10 MG TABLET (FP) PO PRN (22:43)
[2018-03-25] MEDS: chlordiazePOXIDE HCL 25 MG CAPSULE PO SCH ×4 (07:24→22:26)
[2018-03-25] MEDS ORDERED: METHADONE HCL 10 MG TABLET (FOR DETOX USE ONLY) PO SCH (10:00)
[2018-03-25 10:17] LABS: HEMOGLOBIN 12.9 GM/dL (11.7-16.9); MCH 31.9 pg (25.7-33.7); MCHC 33.1 g/dl (32.0-35.9); MEAN CELL VOLUME 96.3 fl (80-96); MEAN PLT VOLUME 8.4 fl (7.5-11.1); PLATELET COUNT 306 K/MM3 (134-434); RBC 4.05 M/mm3 (4.00-5.60); RDW 13.2 % (11.9-15.9); WHITE BLOOD COUNT 5.7 K/mm3 (4.0-10.0)
[2018-03-25] MEDS: cloNIDine HCL 0.1 MG TABLET PO SCH ×2 (10:22→22:26)
[2018-03-25] MEDS: PRENATAL VITAMINS W/ FOLIC ACID TABLET (FP) PO SCH (10:22)
[2018-03-25 10:31] LABS: ALBUMIN 3.6 g/dl (3.4-5.0); ALK PHOS 70 U/L (45-117); ANION GAP 9 MMOL/L (8-16); BILIRUBIN,TOTAL 0.4 mg/dL (0.2-1); BLOOD UREA NITROGEN 13 mg/dL (7-18); CALCIUM 8.3 mg/dL (8.5-10.1); CHLORIDE 106 mmol/L (98-107); CO2 26 mmol/L (21-32); CREATININE 0.6 mg/dL (0.55-1.3); GLUCOSE,RANDOM 71 mg/dL (74-106); POTASSIUM 4.1 mmol/L (3.5-5.1); SGOT/AST 68 U/L (15-37); SGPT/ALT 59 U/L (13-61); SODIUM 140 mmol/L (136-145)
--- NOTE | 2018-03-25 11:04 | PN ---
S CIWA - CIWA Score Nausea/Vomitin-No Nausea/No Vomiting Muscle Tremors: 2 Anxiety: 2 Agitation: 2 Paroxysmal Sweats: 2 Orientation: 0-Oriented Tacttile Disturbances: 0-None Auditory Disturbances: 0-None Visual Disturbances: 0-None Headache: 0-None Present CIWA-Ar Total Score: 8 [facility] Progress Note (SOAP) Subjective: PATIENT ANXIOUS/IRRITABLE. C/O INTERRUPTED SLEEP. +CHILLS/SHAKES. Objective: 03/25/18 11:02 Vital Signs Temperature 98.6 F 03/25/18 09:26 Pulse Rate 67 03/25/18 09:26 Respiratory Rate 16 03/25/18 09:26 Blood Pressure 105/67 03/25/18 09:26 O2 Sat by Pulse Oximetry (%) Laboratory Tests 03/24/18 03/25/18 03/25/18 16:56 05:50 05:50 WBC 5.7 RBC 4.05 Hgb 12.9 Hct 39.0 MCV 96.3 H MCH 31.9 MCHC 33.1 RDW 13.2 Plt Count 306 D MPV 8.4 D Sodium 140 Potassium 4.1 Chloride 106 Carbon Dioxide 26 Anion Gap 9 BUN 13 Creatinine 0.6 Creat Clearance w eGFR > 60 Random Glucose 71 L Calcium 8.3 L Total Bilirubin 0.4 AST 68 H ALT 59 Alkaline Phosphatase 70 Total Protein 8.0 Albumin 3.6 Urine Color Yellow Urine Appearance Clear Urine pH 5.0 Ur Specific [place] 1.017 Urine Protein Negative Urine Glucose (UA) Negative Urine Ketones Negative Urine Blood Negative Urine Nitrite Negative Urine Bilirubin Negative Urine Urobilinogen Negative Ur Leukocyte Esterase Negative PE: ALERT AND ORIENTED X 3 SKIN WARM AND MOIST EXT FULL ROM AMB AD KEVEN ANXIOUS/IRRITABLE Assessment: 03/25/18 11:03 WITHDRAWAL SX Plan: CONTINUE DETOX REGIMEN ENCOURAGE ORAL FLUIDS CONTINUE TO MONITOR CLINICALLY
--- NOTE | 2018-03-25 11:06 | PN ---
[facility] COWS - Scale Resting Pulse: 0= [place] 80 or Below Sweatin= Chills/Flushing Restless Observation: 1= Difficult to Sit Still Pupil Size: 0= Normal to Room Light Bone or Joint Aches: 1= Mild Discomfort Runny Nose/ Eye Tearin= None GI Upset > 30mins: 0= None Tremor Observation of Outstretched Hands: 2= Slight Tremor Visible Yawning Observation: 0= None Anxiety or Irritability: 2=Irritable/Anxious Goose Flesh Skin: 0=Smooth Skin COWS Score: 7
--- NOTE | 2018-03-25 11:37 | EKG ---
Test Reason : Blood Pressure : / mmHG Vent. Rate : 070 BPM Atrial Rate : 070 BPM P-R Int : 144 ms QRS Dur : 100 ms QT Int : 408 ms P-R-T Axes : 064 072 059 degrees QTc Int : 440 ms NORMAL SINUS RHYTHM NORMAL ECG WHEN COMPARED WITH ECG OF 25-AUG-2016 13:22, NO SIGNIFICANT CHANGE WAS FOUND Confirmed by JLUIS WOOD MD ([id number]) on 03/25/2018 11:36:56 AM Referred By: Confirmed By:JLUIS WOOD MD
[2018-03-25] MEDS: THIAMINE HCL 100 MG TABLET (FP) PO SCH (22:26)
[2018-03-25] MEDS: CYCLOBENZAPRINE HCL 10 MG TABLET (FP) PO PRN (22:27)
[2018-03-26] MEDS: chlordiazePOXIDE HCL 25 MG CAPSULE PO SCH (06:11)
[2018-03-26 09:21] VITALS: BP 112/73; PULSE 80; TEMP 97.1
--- NOTE | 2018-03-26 09:25 | CONSULT ---
[facility] Psychiatric Consult - Data Date of interview: 03/26/18 Admission source: [facility] Identifying data: Patient is a 57 year old single male, father of three, unemployed (denies receiving financial assistance), and is currently homeless. This is one of multiple admissions for patient. Patient admitted to for alcohol and opiate dependence. Substance Abuse History: - Smoking Cessation. Smoking history: Current every day smoker. Have you smoked in the past 12 months: Yes. Aproximately how many cigarettes per day: 3. Cigars Per Day: 0. Hx Chewing Tobacco Use: No. Initiated information on smoking cessation: Yes. 'Breaking Loose' booklet given : 03/24/18. - Substance & Tx. History. Hx Alcohol Use: Yes. Hx Substance Use : Yes. Substance Use Type: Alcohol, Heroin. Hx Substance Use Treatment: Yes ( [facility] 08/25/16 to 08/30/16 detox,rehab 08/30/16 to 09/19/16). - Substances Abused. Heroin. Route: Injection. Frequency: Daily. Amount used: 8 to 10 bags. Age of first use: 35. Date of Last Use: 03/24/18. Alcohol. Route: Oral. Frequency: Daily. Amount used: 2pints of vodka. Age of first use: 18. Date of Last Use: 03/23/18 Medical History: REMOVAL OF LEFT EYE: AGE 5, Hep C Psychiatric History: Patient denies h/o psychiatric hospitalization, outpatient care, and suicide attempt. Physical/Sexual Abuse/Trauma History: denies. Mental Status Exam - Mental Status Exam Alert and Oriented to: Time, Place, Person Cognitive Function: Good Patient Appearance: Well Groomed Mood: Hopeful Affect: Appropriate Patient Behavior: Appropriate, Cooperative Speech Pattern: Clear, Appropriate Voice Loudness: Normal Thought Process: Intact, Goal Oriented Thought Disorder: Not Present Hallucinations: Denies Suicidal Ideation: Denies Homicidal Ideation: Denies Insight/Judgement: Poor Sleep: Fair Appetite: Fair Muscle strength/Tone: Normal Gait/Station: Normal Psychiatric Findings - Problem List ([place] 1, 2,3) (1) Alcohol dependence with uncomplicated withdrawal Current Visit: Yes Status: Acute (2) Opioid dependence with withdrawal Current Visit: Yes Status: Acute - Initial Treatment Plan Initial Treatment Plan: Psychoeducation provided. Detoxification in progress. Observation.
[2018-03-26] MEDS ORDERED: METHADONE HCL 5 MG TABLET (FOR DETOX USE ONLY) PO SCH (10:00)
--- NOTE | 2018-03-26 10:26 | DS ---
[facility] Detox Discharge Summary Admission Date: 03/24/18 Discharge Date: 03/26/18 - History Present History: Alcohol Dependence, Opioid Dependence - Physical Exam Results Vital Signs: Vital Signs Temperature 97.1 F L 03/26/18 09:20 Pulse Rate 80 03/26/18 09:20 Respiratory Rate 18 03/26/18 09:20 Blood Pressure 112/73 03/26/18 09:20 O2 Sat by Pulse Oximetry (%) Pertinent Admission Physical Exam Findings: PATIENT REQUESTED TO SIGN OUT AMA WITHOUT REASON. PATIENT ENCOURAGED TO COMPLETE DETOX WITH NO POSITIVE EFFECT. PATIENT ALERT AND ORIENTED X 3, DENIES SI/HI, AMB AD KEVEN. PATIENT ENCOURAGED TO ATTEND GROUP MEETINGS TO PREVENT RELAPSE AND TO SEEK MEDICAL ATTENTION IF WITHDRAWAL SYMPTOMS OCCUR. - Medication Discharge Medications: Ambulatory Orders NK [No Known Home Medication] 03/24/18 - Diagnosis (1) Alcohol dependence with uncomplicated withdrawal Current Visit: Yes Status: Acute (2) Opioid dependence with withdrawal Current Visit: Yes Status: Acute - AMA Did Patient Leave Against Medical Advice: Yes
[2018-03-26] MEDS ORDERED: chlordiazePOXIDE 5 MG CAPSULE PO SCH (11:00)
[2018-03-27] MEDS ORDERED: chlordiazePOXIDE HCL 10 MG CAPSULE PO SCH (11:00)
[2018-03-28] MEDS ORDERED: METHADONE HCL 10 MG TABLET (FOR DETOX USE ONLY) PO SCH (10:00)
[2018-03-29] MEDS ORDERED: METHADONE HCL 5 MG TABLET (FOR DETOX USE ONLY) PO SCH (06:00)
== END 2018-03-26 10:12 | disposition left against medical advice (07) | DRG 770 ==
LOC: YASAS 08:14 → Y3N 10:01
PROC: HZ2ZZZZ Detoxification Services for Substance Abuse Treatment (ICD-10-PCS; principal; 2018-03-24)
DX: F11.23 Opioid dependence with withdrawal (principal); F10.230 Alcohol dependence with withdrawal, uncomplicated; F17.210 Nicotine dependence, cigarettes, uncomplicated; B18.2 Chronic viral hepatitis C; R63.4 Abnormal weight loss; Z68.23 Body mass index [BMI] 23.0-23.9, adult; Z87.828 Personal history of other (healed) physical injury and trauma; S05.72XA Avulsion of left eye, initial encounter; X58.XXXA Exposure to other specified factors, initial encounter; Y93.9 Activity, unspecified; Y92.89 Other specified places as the place of occurrence of the external cause; Y99.8 Other external cause status
CPT/HCPCS: 36415; 80053; 81003; 85027; 86593; 93005; 93010; J0735

== ENCOUNTER 2018-09-13 10:49 | Inpatient (IN) | payer OTHER ==
[2018-09-13 11:59] VITALS: BMI 24.3
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
[2018-09-13] MEDS ORDERED: IBUPROFEN 400 MG TABLET (FP) PO PRN (13:03)
[2018-09-13] MEDS ORDERED: MAGNESIUM CITRATE 300 ML BOTTLE PO PRN (13:03)
[2018-09-13] MEDS ORDERED: MENTHOL/PHENOL 1 EACH UD MM PRN (13:03)
[2018-09-13] MEDS ORDERED: MAG HYDROX/AL HYDROX/SIMETH 30 ML UNIT-DOSE CUP PO PRN (13:03)
[2018-09-13] MEDS ORDERED: BISMUTH SUBSALICYLATE 524 MG/30 ML UD PO PRN (13:03)
[2018-09-13] MEDS ORDERED: METHOCARBAMOL 500 MG TABLET PO PRN (13:03)
[2018-09-13] MEDS ORDERED: MAGNESIUM HYDROX 2400MG/30ML ORAL SUSPENSION 30 ML CUP PO PRN (13:03)
[2018-09-13] MEDS ORDERED: chlordiazePOXIDE HCL 10 MG CAPSULE PO PRN (13:03)
[2018-09-13] MEDS ORDERED: ONDANSETRON *ODT* 4 MG TABLET SL PRN (13:03)
[2018-09-13] MEDS ORDERED: ACETAMINOPHEN 325 MG TABLET (FP) PO PRN ×2 (13:03)
[2018-09-13] MEDS ORDERED: cloNIDine HCL 0.1 MG TABLET PO PRN (13:03)
[2018-09-13] MEDS ORDERED: METHADONE HCL 10 MG TABLET (FOR DETOX USE ONLY) PO ONE ×2 (15:34→23:00)
[2018-09-13] MEDS: chlordiazePOXIDE HCL 25 MG CAPSULE PO SCH ×2 (15:55→21:30)
[2018-09-13] MEDS: THIAMINE HCL 100 MG TABLET (FP) PO SCH (21:30)
[2018-09-13] MEDS ORDERED: MELATONIN 5 MG TABLETS PO PRN (22:00)
[2018-09-14] MEDS: chlordiazePOXIDE HCL 25 MG CAPSULE PO SCH (06:34)
[2018-09-14] MEDS: PRENATAL VITAMINS W/ FOLIC ACID TABLET (FP) PO SCH (09:25)
[2018-09-14] MEDS ORDERED: METHADONE HCL 5 MG TABLET (FOR DETOX USE ONLY) PO ONE (10:00)
--- NOTE | 2018-09-14 11:57 | PN ---
[facility] CIWA - CIWA Score Nausea/Vomitin-No Nausea/No Vomiting Muscle Tremors: 3 Anxiety: 3 Agitation: 3 Paroxysmal Sweats: 3 Orientation: 0-Oriented Tacttile Disturbances: 0-None Auditory Disturbances: 0-None Visual Disturbances: 0-None Headache: 0-None Present CIWA-Ar Total Score: 12 [facility] COWS - Scale Resting Pulse: 0= [place] 80 or Below Sweatin=Flushed/Facial Moisture Restless Observation: 1= Difficult to Sit Still Pupil Size: 0= Normal to Room Light Bone or Joint Aches: 1= Mild Discomfort Runny Nose/ Eye Tearin= Nasal Congestion GI Upset > 30mins: 1= Stomach Cramp Tremor Observation of Outstretched Hands: 1= Tremor [place], Not Seen Yawning Observation: 1= 1-2x During Session Anxiety or Irritability: 2=Irritable/Anxious Goose Flesh Skin: 0=Smooth Skin COWS Score: 10 [facility] Progress Note (SOAP) Subjective: sweats shakes interrupted sleep body aches irritable low appetite Objective: 09/14/18 11:55 Vital Signs Temperature 98.4 F 09/14/18 09:30 Pulse Rate 63 09/14/18 09:30 Respiratory Rate 18 09/14/18 09:30 Blood Pressure 126/92 09/14/18 09:30 O2 Sat by Pulse Oximetry (%) labs pending [id number] ambulating no acute distress Assessment: 09/14/18 11:56 withdrawal sx Plan: continue detox increase fluids ensure bid
[2018-09-14] MEDS: chlordiazePOXIDE 5 MG CAPSULE PO SCH ×2 (15:23→22:36)
[2018-09-14] MEDS: THIAMINE HCL 100 MG TABLET (FP) PO SCH (22:40)
[2018-09-15] MEDS: chlordiazePOXIDE 5 MG CAPSULE PO SCH (06:45)
[2018-09-15] MEDS ORDERED: MELATONIN 5 MG TABLETS PO PRN (09:24)
[2018-09-15] MEDS: PRENATAL VITAMINS W/ FOLIC ACID TABLET (FP) PO SCH (09:26)
--- NOTE | 2018-09-15 09:41 | PN ---
[facility] CIWA - CIWA Score Nausea/Vomitin-No Nausea/No Vomiting Muscle Tremors: 3 Anxiety: 2 Agitation: 2 Paroxysmal Sweats: 2 Orientation: 0-Oriented Tacttile Disturbances: 0-None Auditory Disturbances: 0-None Visual Disturbances: 0-None Headache: 0-None Present CIWA-Ar Total Score: 9 [facility] COWS - Scale Resting Pulse: 0= [place] 80 or Below Sweatin=Flushed/Facial Moisture Restless Observation: 0= Sits Still Pupil Size: 0= Normal to Room Light Bone or Joint Aches: 1= Mild Discomfort Runny Nose/ Eye Tearin= None GI Upset > 30mins: 0= None Tremor Observation of Outstretched Hands: 1= Tremor [place], Not Seen Yawning Observation: 2= >3x During Session Anxiety or Irritability: 1=Feels Anxious/Irritable Goose Flesh Skin: 0=Smooth Skin COWS Score: 7 [facility] Progress Note (SOAP) Subjective: sweats shakes body aches interrupted sleep Objective: 09/15/18 09:40 Vital Signs Temperature 98.1 F 09/15/18 09:08 Pulse Rate 71 09/15/18 09:08 Respiratory Rate 18 09/15/18 09:08 Blood Pressure 122/70 09/15/18 09:08 O2 Sat by Pulse Oximetry (%) there are no labs drawn because pt refused to have his blood drawn. job specification writer consulted with pt the importance of having his blood drawn to determine if there is any need for replenishing any low lab results; but he insisted he is not obligated to have his blood drawn and will continue to refuse. Radiography Technician stated that if our services are needed again in the future to please oblige to having blood drawn to make sure that we medical and nursing staff provide the ultimate care and the right and proper dose of any replenishing medication pt may require. Pt in agreement with above statement. [id number] ambulating no acute distress Assessment: 09/15/18 09:52 mild withdrawal sx Plan: continue detox increase fluids melatonin 10mg prn to assist with sleep
[2018-09-15] MEDS ORDERED: METHADONE HCL 10 MG TABLET (FOR DETOX USE ONLY) PO ONE (10:00)
[2018-09-15] MEDS ORDERED: chlordiazePOXIDE HCL 10 MG CAPSULE PO PRN (13:00)
[2018-09-15] MEDS: chlordiazePOXIDE HCL 10 MG CAPSULE PO SCH ×2 (14:25→22:26)
[2018-09-15] MEDS: THIAMINE HCL 100 MG TABLET (FP) PO SCH (22:26)
[2018-09-16] MEDS ORDERED: METHADONE HCL 5 MG TABLET (FOR DETOX USE ONLY) PO ONE (06:00)
[2018-09-16] MEDS: chlordiazePOXIDE HCL 10 MG CAPSULE PO SCH (06:21)
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
[2018-09-16 10:02] VITALS: BP 126/69; PULSE 93; TEMP 98.4
== END 2018-09-16 09:15 | disposition home or self-care (01) | DRG 773 ==
LOC: YASAS 10:49 → Y6N 13:59
PROVIDERS: ADMIT Surgery; ATTEND Surgery
PROC: HZ2ZZZZ Detoxification Services for Substance Abuse Treatment (ICD-10-PCS; principal; 2018-09-13)
DX: F11.23 Opioid dependence with withdrawal (principal); F10.230 Alcohol dependence with withdrawal, uncomplicated; F17.210 Nicotine dependence, cigarettes, uncomplicated; B18.2 Chronic viral hepatitis C; R63.4 Abnormal weight loss
CPT/HCPCS: J0735

== ENCOUNTER 2020-06-27 09:09 | Inpatient (IN) | payer OTHER ==
[2020-06-27 09:39] VITALS: BMI 21.2
[2020-06-27] MEDS ORDERED: METHADONE HCL 10 MG TABLET (FOR DETOX USE ONLY) ONE (10:25)
[2020-06-27] MEDS ORDERED: MAG HYDROX/AL HYDROX/SIMETH 30 ML UNIT-DOSE CUP PO PRN (10:43)
[2020-06-27] MEDS ORDERED: NICOTINE POLACRILEX 2 MG GUM BUC PRN (10:43)
[2020-06-27] MEDS ORDERED: ACETAMINOPHEN 325 MG TABLET (FP) PO PRN ×2 (10:43)
[2020-06-27] MEDS ORDERED: BISMUTH SUBSALICYLATE 262 MG/15 ML BTL PO PRN (10:43)
[2020-06-27] MEDS ORDERED: ONDANSETRON *ODT* 4 MG TABLET SL PRN (10:43)
[2020-06-27] MEDS ORDERED: METHOCARBAMOL 500 MG TABLET PO PRN (10:43)
[2020-06-27] MEDS ORDERED: METHADONE HCL 10 MG TABLET (FOR DETOX USE ONLY) PO ONE (10:43)
[2020-06-27] MEDS ORDERED: MAGNESIUM HYDROX 2400MG/30ML ORAL SUSPENSION 30 ML CUP PO PRN (10:43)
[2020-06-27] MEDS ORDERED: cloNIDine HCL 0.1 MG TABLET PO PRN (10:43)
[2020-06-27] MEDS ORDERED: MENTHOL/PHENOL 1 EACH UD MM PRN (10:43)
[2020-06-27] MEDS ORDERED: MAGNESIUM CITRATE 300 ML BOTTLE PO PRN (10:43)
[2020-06-27] MEDS: chlordiazePOXIDE HCL 25 MG CAPSULE PO PRN (12:03)
[2020-06-27] MEDS: hydrOXYzine PAMOATE 25 MG CAPSULE (FP) PO SCH ×2 (14:28→18:30)
[2020-06-27] MEDS: chlordiazePOXIDE HCL 25 MG CAPSULE PO SCH (18:30)
[2020-06-28] MEDS: MELATONIN 5 MG TABLETS PO SCH ×2 (01:08→22:58)
[2020-06-28] MEDS: hydrOXYzine PAMOATE 25 MG CAPSULE (FP) PO SCH ×6 (01:08→22:58)
[2020-06-28] MEDS: THIAMINE HCL 100 MG TABLET (FP) PO SCH ×2 (01:09→22:58)
[2020-06-28] MEDS: chlordiazePOXIDE HCL 25 MG CAPSULE PO SCH ×5 (01:09→23:02)
[2020-06-28] MEDS ORDERED: METHADONE HCL 10 MG TABLET (FOR DETOX USE ONLY) ONE (09:54)
[2020-06-28] MEDS ORDERED: METHADONE HCL 5 MG TABLET (FOR DETOX USE ONLY) ONE (09:54)
[2020-06-28] MEDS ORDERED: METHADONE (DETOX) 20 MG, METHADONE (DETOX) 5 MG PO ONE (10:00)
[2020-06-28] MEDS: PRENATAL VITAMINS W/ FOLIC ACID TABLET (FP) PO SCH (11:17)
[2020-06-28 11:20] LABS: POTASSIUM 4.5 mmol/L (3.5-5.1)
[2020-06-28 11:25] LABS: ALBUMIN 3.2 g/dl (3.4-5.0); BLOOD UREA NITROGEN 8.3 mg/dL (7-18); CALCIUM 9.2 mg/dL (8.5-10.1)
[2020-06-28 11:27] LABS: HEMATOCRIT 42.3 % (35.4-49); HEMOGLOBIN 14.3 GM/dL (11.7-16.9); MCHC 33.8 g/dl (32.0-35.9); MEAN CELL VOLUME 91.9 fl (80-96); MEAN PLT VOLUME 7.4 fl (7.5-11.1); PLATELET COUNT 387 K/MM3 (134-434); RDW 14.1 % (11.9-15.9); WHITE BLOOD COUNT 4.7 K/mm3 (4.0-10.0)
[2020-06-28 11:28] LABS: BILIRUBIN,TOTAL 0.8 mg/dL (0.2-1); CREATININE 0.6 mg/dL (0.55-1.3)
[2020-06-28 11:29] LABS: TOT PROT 8.4 g/dl (6.4-8.2)
[2020-06-29] MEDS: hydrOXYzine PAMOATE 25 MG CAPSULE (FP) PO SCH ×5 (05:41→22:18)
[2020-06-29] MEDS: chlordiazePOXIDE HCL 25 MG CAPSULE PO PRN (05:41)
[2020-06-29] MEDS: chlordiazePOXIDE HCL 25 MG CAPSULE PO SCH ×4 (05:52→22:17)
[2020-06-29] MEDS ORDERED: METHADONE HCL 10 MG TABLET (FOR DETOX USE ONLY) PO ONE (10:00)
[2020-06-29] MEDS: PRENATAL VITAMINS W/ FOLIC ACID TABLET (FP) PO SCH (10:39)
[2020-06-29] MEDS: MELATONIN 5 MG TABLETS PO SCH (22:17)
[2020-06-29] MEDS: THIAMINE HCL 100 MG TABLET (FP) PO SCH (22:17)
[2020-06-30] MEDS ORDERED: chlordiazePOXIDE HCL 10 MG CAPSULE PO PRN
[2020-06-30] MEDS: hydrOXYzine PAMOATE 25 MG CAPSULE (FP) PO SCH ×5 (06:40→23:37)
[2020-06-30] MEDS: chlordiazePOXIDE HCL 10 MG CAPSULE PO SCH ×4 (06:41→23:36)
[2020-06-30] MEDS ORDERED: METHADONE HCL 5 MG TABLET (FOR DETOX USE ONLY) ONE (09:52)
[2020-06-30] MEDS ORDERED: METHADONE HCL 10 MG TABLET (FOR DETOX USE ONLY) ONE (09:53)
[2020-06-30] MEDS ORDERED: METHADONE (DETOX) 10 MG, METHADONE (DETOX) 5 MG PO ONE (10:00)
[2020-06-30] MEDS: PRENATAL VITAMINS W/ FOLIC ACID TABLET (FP) PO SCH (10:27)
[2020-06-30] MEDS: THIAMINE HCL 100 MG TABLET (FP) PO SCH (23:37)
[2020-06-30] MEDS: MELATONIN 5 MG TABLETS PO SCH (23:37)
[2020-07-01] MEDS: chlordiazePOXIDE HCL 10 MG CAPSULE PO SCH ×2 (05:31→18:08)
[2020-07-01] MEDS: hydrOXYzine PAMOATE 25 MG CAPSULE (FP) PO SCH ×5 (05:31→22:48)
[2020-07-01] MEDS: IBUPROFEN 400 MG TABLET (FP) PO PRN ×2 (05:32→22:47)
[2020-07-01] MEDS ORDERED: METHADONE HCL 10 MG TABLET (FOR DETOX USE ONLY) PO ONE (10:00)
[2020-07-01] MEDS: PRENATAL VITAMINS W/ FOLIC ACID TABLET (FP) PO SCH (10:25)
[2020-07-01] MEDS: MELATONIN 5 MG TABLETS PO SCH (22:48)
[2020-07-01] MEDS: THIAMINE HCL 100 MG TABLET (FP) PO SCH (22:48)
[2020-07-02] MEDS ORDERED: chlordiazePOXIDE HCL 10 MG CAPSULE PO ONE (05:00)
[2020-07-02] MEDS ORDERED: METHADONE HCL 5 MG TABLET (FOR DETOX USE ONLY) PO ONE (06:00)
[2020-07-02] MEDS: hydrOXYzine PAMOATE 25 MG CAPSULE (FP) PO SCH ×2 (07:27→10:25)
[2020-07-02] MEDS: PRENATAL VITAMINS W/ FOLIC ACID TABLET (FP) PO SCH (10:25)
[2020-07-02 12:39] VITALS: BP 95/71; PULSE 88; TEMP 97.5
== END 2020-07-02 13:42 | disposition other institution (70) | DRG 773 ==
LOC: YASAS 09:09 → Y6N 11:21
PROVIDERS: ADMIT Allergy & Immunology; ATTEND Allergy & Immunology
PROC: HZ2ZZZZ Detoxification Services for Substance Abuse Treatment (ICD-10-PCS; principal; 2020-06-27)
DX: F11.23 Opioid dependence with withdrawal (principal); F10.230 Alcohol dependence with withdrawal, uncomplicated; F17.210 Nicotine dependence, cigarettes, uncomplicated; F19.24 Other psychoactive substance dependence with psychoactive substance-induced mood disorder; B18.2 Chronic viral hepatitis C; M25.572 Pain in left ankle and joints of left foot; M21.831 Other specified acquired deformities of right forearm; R63.4 Abnormal weight loss; Z68.21 Body mass index [BMI] 21.0-21.9, adult; Z99.89 Dependence on other enabling machines and devices
CPT/HCPCS: 36415; 80053; 85027; 86780; 93005; 93010; C9803; U0003

== ENCOUNTER 2020-06-30 13:16 | Emergency (ER) | payer OTHER ==
[2020-06-30 14:12] VITALS: BP 127/86; PULSE 89; TEMP 98.7; BMI 22.5
== END 2020-06-30 21:46 | disposition home or self-care (01) ==
LOC: JER 13:16
DX: M79.672 Pain in left foot (principal); F10.239 Alcohol dependence with withdrawal, unspecified; F11.23 Opioid dependence with withdrawal
CPT/HCPCS: 73610-TC-LT-FY; 73630-TC-LT; 99283-25

== ENCOUNTER 2020-07-02 13:13 | Inpatient (IN) | payer OTHER ==
[~2020-07-02 13:13] MED LIST: ACETAMINOPHEN 325 MG TABLET (FP) PO PRN; LOPERAMIDE HCL 2 MG CAPSULE PO PRN; MAG HYDROX/AL HYDROX/SIMETH 30 ML UNIT-DOSE CUP PO PRN; MAGNESIUM CITRATE 300 ML BOTTLE PO PRN; MAGNESIUM HYDROX 2400MG/30ML ORAL SUSPENSION 30 ML CUP PO PRN; P-EPHED 60MG/TRIPROLIDI 2.5MG TABLET PO PRN; guaiFENesin 200 MG/10 ML 10 ML UNIT-DOSE CUPS PO PRN
[2020-07-02] MEDS: THIAMINE HCL 100 MG TABLET (FP) PO SCH (21:09)
[2020-07-02] MEDS: MELATONIN 5 MG TABLETS PO SCH (21:09)
[2020-07-03] MEDS: PRENATAL VITAMINS W/ FOLIC ACID TABLET (FP) PO SCH (10:37)
[2020-07-03] MEDS: MINERAL OIL/PETROLAT/WATER TOPICAL CREAM 113 GM JAR TP SCH ×2 (10:39→21:31)
[2020-07-03] MEDS: MELATONIN 5 MG TABLETS PO SCH (21:30)
[2020-07-03] MEDS: THIAMINE HCL 100 MG TABLET (FP) PO SCH (21:31)
[2020-07-04] MEDS: PRENATAL VITAMINS W/ FOLIC ACID TABLET (FP) PO SCH (10:00)
[2020-07-04] MEDS: MINERAL OIL/PETROLAT/WATER TOPICAL CREAM 113 GM JAR TP SCH ×2 (10:01→21:17)
[2020-07-04] MEDS: MELATONIN 5 MG TABLETS PO SCH (21:16)
[2020-07-04] MEDS: THIAMINE HCL 100 MG TABLET (FP) PO SCH (21:16)
[2020-07-04] MEDS: IBUPROFEN 400 MG TABLET (FP) PO PRN (21:17)
[2020-07-05] MEDS: PRENATAL VITAMINS W/ FOLIC ACID TABLET (FP) PO SCH (09:55)
[2020-07-05] MEDS: MINERAL OIL/PETROLAT/WATER TOPICAL CREAM 113 GM JAR TP SCH ×2 (09:56→21:28)
[2020-07-05] MEDS: MELATONIN 5 MG TABLETS PO SCH (21:27)
[2020-07-05] MEDS: THIAMINE HCL 100 MG TABLET (FP) PO SCH (21:27)
[2020-07-05] MEDS: IBUPROFEN 400 MG TABLET (FP) PO PRN (21:27)
[2020-07-06] MEDS: MINERAL OIL/PETROLAT/WATER TOPICAL CREAM 113 GM JAR TP SCH ×2 (10:04→21:22)
[2020-07-06] MEDS: PRENATAL VITAMINS W/ FOLIC ACID TABLET (FP) PO SCH (10:04)
[2020-07-06] MEDS: COLLOIDAL OATMEAL 1 BAR EACH TP PRN (10:05)
[2020-07-06 12:20] LABS: HIV INTERPRETATION NEGATIVE (NEGATIVE)
[2020-07-06] MEDS: MELATONIN 5 MG TABLETS PO SCH (21:19)
[2020-07-06] MEDS: THIAMINE HCL 100 MG TABLET (FP) PO SCH (21:19)
[2020-07-07] MEDS ORDERED: PT OWN MED DRAWER 7, Y5N ONE (08:45)
[2020-07-07] MEDS: PRENATAL VITAMINS W/ FOLIC ACID TABLET (FP) PO SCH (09:49)
[2020-07-07] MEDS: MINERAL OIL/PETROLAT/WATER TOPICAL CREAM 113 GM JAR TP SCH ×2 (09:49→21:28)
[2020-07-07] MEDS: THIAMINE HCL 100 MG TABLET (FP) PO SCH (21:27)
[2020-07-07] MEDS: SUVOREXANT 10 MG TABLET PO PRN (21:27)
[2020-07-08] MEDS: PRENATAL VITAMINS W/ FOLIC ACID TABLET (FP) PO SCH (10:00)
[2020-07-08] MEDS: MINERAL OIL/PETROLAT/WATER TOPICAL CREAM 113 GM JAR TP SCH ×2 (10:00→21:16)
[2020-07-08] MEDS: THIAMINE HCL 100 MG TABLET (FP) PO SCH (21:14)
[2020-07-08] MEDS: SUVOREXANT 10 MG TABLET PO PRN (21:15)
[2020-07-09] MEDS: MINERAL OIL/PETROLAT/WATER TOPICAL CREAM 113 GM JAR TP SCH ×2 (09:49→21:26)
[2020-07-09] MEDS: PRENATAL VITAMINS W/ FOLIC ACID TABLET (FP) PO SCH (09:49)
[2020-07-09] MEDS: COLLOIDAL OATMEAL 1 BAR EACH TP PRN (09:49)
[2020-07-09] MEDS: SUVOREXANT 10 MG TABLET PO PRN (21:25)
[2020-07-09] MEDS: THIAMINE HCL 100 MG TABLET (FP) PO SCH (21:26)
[2020-07-10] MEDS ORDERED: IBUPROFEN 600 MG TABLET (FP) PO PRN (09:52)
[2020-07-10] MEDS: PRENATAL VITAMINS W/ FOLIC ACID TABLET (FP) PO SCH (10:27)
[2020-07-10] MEDS: MINERAL OIL/PETROLAT/WATER TOPICAL CREAM 113 GM JAR TP SCH ×2 (10:28→21:21)
[2020-07-10] MEDS: IBUPROFEN 600 MG TABLET (FP) PO PRN ×2 (13:17→21:20)
[2020-07-10] MEDS: LIDOCAINE 5% TOPICAL PATCH TP SCH (13:17)
[2020-07-10] MEDS: THIAMINE HCL 100 MG TABLET (FP) PO SCH (21:18)
[2020-07-10] MEDS: SUVOREXANT 15 MG TABLET PO PRN (21:19)
[2020-07-10] MEDS: LIDOCAINE PATCH REMOVAL MC SCH (21:21)
[2020-07-10] MEDS: METHYL SALICYLATE/MENTHOL OINT 30 GM TUBE TP SCH (21:21)
[2020-07-11] MEDS: IBUPROFEN 600 MG TABLET (FP) PO PRN ×2 (09:47→21:19)
[2020-07-11] MEDS: PRENATAL VITAMINS W/ FOLIC ACID TABLET (FP) PO SCH (09:47)
[2020-07-11] MEDS: LIDOCAINE 5% TOPICAL PATCH TP SCH (09:48)
[2020-07-11] MEDS: MINERAL OIL/PETROLAT/WATER TOPICAL CREAM 113 GM JAR TP SCH ×2 (09:48→21:20)
[2020-07-11] MEDS: THIAMINE HCL 100 MG TABLET (FP) PO SCH (21:17)
[2020-07-11] MEDS: SUVOREXANT 15 MG TABLET PO PRN (21:19)
[2020-07-11] MEDS: METHYL SALICYLATE/MENTHOL OINT 30 GM TUBE TP SCH (21:20)
[2020-07-11] MEDS: LIDOCAINE PATCH REMOVAL MC SCH (21:20)
[2020-07-12] MEDS: LIDOCAINE 5% TOPICAL PATCH TP SCH (09:48)
[2020-07-12] MEDS: METHOCARBAMOL 500 MG TABLET PO SCH ×4 (09:49→21:24)
[2020-07-12] MEDS: MINERAL OIL/PETROLAT/WATER TOPICAL CREAM 113 GM JAR TP SCH ×2 (09:49→21:26)
[2020-07-12] MEDS: PRENATAL VITAMINS W/ FOLIC ACID TABLET (FP) PO SCH (09:49)
[2020-07-12] MEDS: SUVOREXANT 15 MG TABLET PO PRN (21:24)
[2020-07-12] MEDS: METHYL SALICYLATE/MENTHOL OINT 30 GM TUBE TP SCH (21:25)
[2020-07-12] MEDS: THIAMINE HCL 100 MG TABLET (FP) PO SCH (21:25)
[2020-07-12] MEDS: LIDOCAINE PATCH REMOVAL MC SCH (21:27)
[2020-07-13] MEDS: PRENATAL VITAMINS W/ FOLIC ACID TABLET (FP) PO SCH (10:18)
[2020-07-13] MEDS: LIDOCAINE 5% TOPICAL PATCH TP SCH (10:18)
[2020-07-13] MEDS: IBUPROFEN 600 MG TABLET (FP) PO PRN (10:19)
[2020-07-13] MEDS: MINERAL OIL/PETROLAT/WATER TOPICAL CREAM 113 GM JAR TP SCH ×2 (10:22→21:23)
[2020-07-13] MEDS: METHOCARBAMOL 500 MG TABLET PO SCH ×4 (10:22→21:20)
[2020-07-13] MEDS: SUVOREXANT 15 MG TABLET PO PRN (21:19)
[2020-07-13] MEDS: THIAMINE HCL 100 MG TABLET (FP) PO SCH (21:20)
[2020-07-13] MEDS: IBUPROFEN 400 MG TABLET (FP) PO PRN (21:21)
[2020-07-13] MEDS: METHYL SALICYLATE/MENTHOL OINT 30 GM TUBE TP SCH (21:23)
[2020-07-13] MEDS: LIDOCAINE PATCH REMOVAL MC SCH (21:23)
[2020-07-14] MEDS: PRENATAL VITAMINS W/ FOLIC ACID TABLET (FP) PO SCH (10:10)
[2020-07-14] MEDS: LIDOCAINE 5% TOPICAL PATCH TP SCH (10:10)
[2020-07-14] MEDS: METHOCARBAMOL 500 MG TABLET PO SCH ×4 (10:11→21:21)
[2020-07-14] MEDS: MINERAL OIL/PETROLAT/WATER TOPICAL CREAM 113 GM JAR TP SCH ×2 (10:12→21:22)
[2020-07-14] MEDS: SUVOREXANT 15 MG TABLET PO PRN (21:21)
[2020-07-14] MEDS: LIDOCAINE PATCH REMOVAL MC SCH (21:21)
[2020-07-14] MEDS: THIAMINE HCL 100 MG TABLET (FP) PO SCH (21:21)
[2020-07-14] MEDS: METHYL SALICYLATE/MENTHOL OINT 30 GM TUBE TP SCH (21:23)
[2020-07-14] MEDS: IBUPROFEN 400 MG TABLET (FP) PO PRN (21:23)
[2020-07-15] MEDS: LIDOCAINE 5% TOPICAL PATCH TP SCH (09:46)
[2020-07-15] MEDS: MINERAL OIL/PETROLAT/WATER TOPICAL CREAM 113 GM JAR TP SCH ×2 (09:47→21:23)
[2020-07-15] MEDS: PRENATAL VITAMINS W/ FOLIC ACID TABLET (FP) PO SCH (09:47)
[2020-07-15] MEDS: METHOCARBAMOL 500 MG TABLET PO SCH ×4 (09:47→21:21)
[2020-07-15] MEDS: IBUPROFEN 400 MG TABLET (FP) PO PRN ×2 (09:49→21:22)
[2020-07-15] MEDS: SUVOREXANT 15 MG TABLET PO PRN (21:21)
[2020-07-15] MEDS: THIAMINE HCL 100 MG TABLET (FP) PO SCH (21:21)
[2020-07-15] MEDS: METHYL SALICYLATE/MENTHOL OINT 30 GM TUBE TP SCH (21:23)
[2020-07-15] MEDS: LIDOCAINE PATCH REMOVAL MC SCH (21:23)
[2020-07-16] MEDS: METHOCARBAMOL 500 MG TABLET PO SCH ×4 (10:01→21:22)
[2020-07-16] MEDS: PRENATAL VITAMINS W/ FOLIC ACID TABLET (FP) PO SCH (10:01)
[2020-07-16] MEDS: LIDOCAINE 5% TOPICAL PATCH TP SCH (10:02)
[2020-07-16] MEDS: IBUPROFEN 400 MG TABLET (FP) PO PRN (10:03)
[2020-07-16] MEDS: MINERAL OIL/PETROLAT/WATER TOPICAL CREAM 113 GM JAR TP SCH ×2 (10:18→21:25)
[2020-07-16] MEDS: SUVOREXANT 5 MG TABLET PO PRN (21:21)
[2020-07-16] MEDS: THIAMINE HCL 100 MG TABLET (FP) PO SCH (21:22)
[2020-07-16] MEDS: LIDOCAINE PATCH REMOVAL MC SCH (21:24)
[2020-07-16] MEDS: METHYL SALICYLATE/MENTHOL OINT 30 GM TUBE TP SCH (21:25)
[2020-07-17] MEDS: PRENATAL VITAMINS W/ FOLIC ACID TABLET (FP) PO SCH (10:04)
[2020-07-17] MEDS: LIDOCAINE 5% TOPICAL PATCH TP SCH (10:04)
[2020-07-17] MEDS: METHOCARBAMOL 500 MG TABLET PO SCH ×4 (10:04→21:24)
[2020-07-17] MEDS: MINERAL OIL/PETROLAT/WATER TOPICAL CREAM 113 GM JAR TP SCH ×2 (10:07→21:27)
[2020-07-17] MEDS: SUVOREXANT 5 MG TABLET PO PRN (21:24)
[2020-07-17] MEDS: THIAMINE HCL 100 MG TABLET (FP) PO SCH (21:24)
[2020-07-17] MEDS: IBUPROFEN 400 MG TABLET (FP) PO PRN (21:25)
[2020-07-17] MEDS: METHYL SALICYLATE/MENTHOL OINT 30 GM TUBE TP SCH (21:27)
[2020-07-17] MEDS: LIDOCAINE PATCH REMOVAL MC SCH (21:27)
[2020-07-18] MEDS: LIDOCAINE 5% TOPICAL PATCH TP SCH (10:11)
[2020-07-18] MEDS: METHOCARBAMOL 500 MG TABLET PO SCH ×4 (10:11→21:21)
[2020-07-18] MEDS: PRENATAL VITAMINS W/ FOLIC ACID TABLET (FP) PO SCH (10:11)
[2020-07-18] MEDS: MINERAL OIL/PETROLAT/WATER TOPICAL CREAM 113 GM JAR TP SCH ×2 (10:13→21:23)
[2020-07-18] MEDS: TOLNAFTATE 1% CREAM 15 GM TUBE TP SCH ×2 (14:17→21:22)
[2020-07-18] MEDS: IBUPROFEN 400 MG TABLET (FP) PO PRN (21:21)
[2020-07-18] MEDS: THIAMINE HCL 100 MG TABLET (FP) PO SCH (21:21)
[2020-07-18] MEDS: LIDOCAINE PATCH REMOVAL MC SCH (21:22)
[2020-07-18] MEDS: METHYL SALICYLATE/MENTHOL OINT 30 GM TUBE TP SCH (21:23)
[2020-07-19] MEDS: METHOCARBAMOL 500 MG TABLET PO SCH ×4 (09:55→21:19)
[2020-07-19] MEDS: PRENATAL VITAMINS W/ FOLIC ACID TABLET (FP) PO SCH (09:55)
[2020-07-19] MEDS: LIDOCAINE 5% TOPICAL PATCH TP SCH (09:56)
[2020-07-19] MEDS: TOLNAFTATE 1% CREAM 15 GM TUBE TP SCH ×2 (09:56→21:20)
[2020-07-19] MEDS: MINERAL OIL/PETROLAT/WATER TOPICAL CREAM 113 GM JAR TP SCH ×2 (09:56→21:21)
[2020-07-19] MEDS: THIAMINE HCL 100 MG TABLET (FP) PO SCH (21:19)
[2020-07-19] MEDS: METHYL SALICYLATE/MENTHOL OINT 30 GM TUBE TP SCH (21:20)
[2020-07-19] MEDS: LIDOCAINE PATCH REMOVAL MC SCH (21:20)
[2020-07-19] MEDS ORDERED: SUVOREXANT 5 MG TABLET PO PRN (22:00)
[2020-07-20] MEDS: LIDOCAINE 5% TOPICAL PATCH TP SCH (09:55)
[2020-07-20] MEDS: METHOCARBAMOL 500 MG TABLET PO SCH ×4 (09:55→21:18)
[2020-07-20] MEDS: PRENATAL VITAMINS W/ FOLIC ACID TABLET (FP) PO SCH (09:55)
[2020-07-20] MEDS: MINERAL OIL/PETROLAT/WATER TOPICAL CREAM 113 GM JAR TP SCH ×2 (09:55→21:19)
[2020-07-20] MEDS: TOLNAFTATE 1% CREAM 15 GM TUBE TP SCH ×2 (09:56→21:19)
[2020-07-20] MEDS: THIAMINE HCL 100 MG TABLET (FP) PO SCH (21:17)
[2020-07-20] MEDS: METHYL SALICYLATE/MENTHOL OINT 30 GM TUBE TP SCH (21:19)
[2020-07-20] MEDS: LIDOCAINE PATCH REMOVAL MC SCH (21:19)
[2020-07-21] MEDS: METHOCARBAMOL 500 MG TABLET PO SCH ×4 (10:16→21:41)
[2020-07-21] MEDS: PRENATAL VITAMINS W/ FOLIC ACID TABLET (FP) PO SCH (10:16)
[2020-07-21] MEDS: LIDOCAINE 5% TOPICAL PATCH TP SCH (10:17)
[2020-07-21] MEDS: MINERAL OIL/PETROLAT/WATER TOPICAL CREAM 113 GM JAR TP SCH ×2 (10:17→21:39)
[2020-07-21] MEDS: TOLNAFTATE 1% CREAM 15 GM TUBE TP SCH ×2 (10:18→21:40)
[2020-07-21] MEDS ORDERED: PT OWN MED DRAWER 7, Y5N ONE (19:12)
[2020-07-21] MEDS: METHYL SALICYLATE/MENTHOL OINT 30 GM TUBE TP SCH (21:40)
[2020-07-21] MEDS: THIAMINE HCL 100 MG TABLET (FP) PO SCH (21:41)
[2020-07-21] MEDS: LIDOCAINE PATCH REMOVAL MC SCH (22:24)
[2020-07-22] MEDS: METHOCARBAMOL 500 MG TABLET PO SCH ×4 (10:00→21:20)
[2020-07-22] MEDS: PRENATAL VITAMINS W/ FOLIC ACID TABLET (FP) PO SCH (10:00)
[2020-07-22] MEDS: MINERAL OIL/PETROLAT/WATER TOPICAL CREAM 113 GM JAR TP SCH ×2 (10:00→21:21)
[2020-07-22] MEDS: LIDOCAINE 5% TOPICAL PATCH TP SCH (10:01)
[2020-07-22] MEDS: TOLNAFTATE 1% CREAM 15 GM TUBE TP SCH ×2 (10:02→21:21)
[2020-07-22] MEDS: THIAMINE HCL 100 MG TABLET (FP) PO SCH (21:20)
[2020-07-22] MEDS: LIDOCAINE PATCH REMOVAL MC SCH (21:21)
[2020-07-22] MEDS: METHYL SALICYLATE/MENTHOL OINT 30 GM TUBE TP SCH (21:21)
[2020-07-23] MEDS: MINERAL OIL/PETROLAT/WATER TOPICAL CREAM 113 GM JAR TP SCH ×2 (10:11→21:28)
[2020-07-23] MEDS: PRENATAL VITAMINS W/ FOLIC ACID TABLET (FP) PO SCH (10:12)
[2020-07-23] MEDS: LIDOCAINE 5% TOPICAL PATCH TP SCH (10:12)
[2020-07-23] MEDS: METHOCARBAMOL 500 MG TABLET PO SCH ×4 (10:12→21:28)
[2020-07-23] MEDS: TOLNAFTATE 1% CREAM 15 GM TUBE TP SCH ×2 (10:12→22:16)
[2020-07-23] MEDS: THIAMINE HCL 100 MG TABLET (FP) PO SCH (21:28)
[2020-07-23] MEDS: METHYL SALICYLATE/MENTHOL OINT 30 GM TUBE TP SCH (21:30)
[2020-07-23] MEDS: LIDOCAINE PATCH REMOVAL MC SCH (21:30)
[2020-07-24] MEDS: PRENATAL VITAMINS W/ FOLIC ACID TABLET (FP) PO SCH (09:57)
[2020-07-24] MEDS: METHOCARBAMOL 500 MG TABLET PO SCH ×4 (09:57→21:13)
[2020-07-24] MEDS: TOLNAFTATE 1% CREAM 15 GM TUBE TP SCH ×2 (09:58→21:14)
[2020-07-24] MEDS: LIDOCAINE 5% TOPICAL PATCH TP SCH (09:58)
[2020-07-24] MEDS: MINERAL OIL/PETROLAT/WATER TOPICAL CREAM 113 GM JAR TP SCH ×2 (09:58→21:13)
[2020-07-24] MEDS: THIAMINE HCL 100 MG TABLET (FP) PO SCH (21:12)
[2020-07-24] MEDS: METHYL SALICYLATE/MENTHOL OINT 30 GM TUBE TP SCH (21:13)
[2020-07-24] MEDS: LIDOCAINE PATCH REMOVAL MC SCH (21:13)
[2020-07-25] MEDS: MINERAL OIL/PETROLAT/WATER TOPICAL CREAM 113 GM JAR TP SCH ×2 (09:56→21:31)
[2020-07-25] MEDS: LIDOCAINE 5% TOPICAL PATCH TP SCH (09:56)
[2020-07-25] MEDS: METHOCARBAMOL 500 MG TABLET PO SCH ×4 (09:57→21:50)
[2020-07-25] MEDS: PRENATAL VITAMINS W/ FOLIC ACID TABLET (FP) PO SCH (09:57)
[2020-07-25] MEDS: TOLNAFTATE 1% CREAM 15 GM TUBE TP SCH ×2 (09:58→21:32)
[2020-07-25] MEDS: METHYL SALICYLATE/MENTHOL OINT 30 GM TUBE TP SCH (21:31)
[2020-07-25] MEDS: THIAMINE HCL 100 MG TABLET (FP) PO SCH (21:32)
[2020-07-25] MEDS: LIDOCAINE PATCH REMOVAL MC SCH (21:50)
[2020-07-25] MEDS ORDERED: SUVOREXANT 15 MG TABLET PO PRN (22:00)
[2020-07-26] MEDS: LIDOCAINE 5% TOPICAL PATCH TP SCH (10:17)
[2020-07-26] MEDS: MINERAL OIL/PETROLAT/WATER TOPICAL CREAM 113 GM JAR TP SCH ×2 (10:18→22:04)
[2020-07-26] MEDS: TOLNAFTATE 1% CREAM 15 GM TUBE TP SCH ×2 (10:18→22:05)
[2020-07-26] MEDS: METHOCARBAMOL 500 MG TABLET PO SCH ×4 (10:18→22:04)
[2020-07-26] MEDS: PRENATAL VITAMINS W/ FOLIC ACID TABLET (FP) PO SCH (10:18)
[2020-07-26] MEDS: METHYL SALICYLATE/MENTHOL OINT 30 GM TUBE TP SCH (21:24)
[2020-07-26] MEDS: LIDOCAINE PATCH REMOVAL MC SCH (22:04)
[2020-07-26] MEDS: THIAMINE HCL 100 MG TABLET (FP) PO SCH (22:05)
[2020-07-27] MEDS: MINERAL OIL/PETROLAT/WATER TOPICAL CREAM 113 GM JAR TP SCH ×2 (10:01→21:33)
[2020-07-27] MEDS: METHOCARBAMOL 500 MG TABLET PO SCH ×4 (10:02→21:34)
[2020-07-27] MEDS: TOLNAFTATE 1% CREAM 15 GM TUBE TP SCH ×2 (10:02→21:34)
[2020-07-27] MEDS: LIDOCAINE 5% TOPICAL PATCH TP SCH (10:02)
[2020-07-27] MEDS: PRENATAL VITAMINS W/ FOLIC ACID TABLET (FP) PO SCH (10:02)
[2020-07-27] MEDS: METHYL SALICYLATE/MENTHOL OINT 30 GM TUBE TP SCH (21:33)
[2020-07-27] MEDS: LIDOCAINE PATCH REMOVAL MC SCH (21:34)
[2020-07-27] MEDS: THIAMINE HCL 100 MG TABLET (FP) PO SCH (21:34)
[2020-07-27] MEDS ORDERED: SUVOREXANT 15 MG TABLET PO PRN (22:00)
[2020-07-28 06:52] VITALS: BP 119/67; PULSE 77; TEMP 98.1
== END 2020-07-28 09:00 | disposition home or self-care (01) | DRG 772 ==
LOC: YASAS 13:13 → Y3W 13:14
PROVIDERS: ADMIT Allergy & Immunology; ATTEND Allergy & Immunology
PROC: HZ42ZZZ Group Counseling for Substance Abuse Treatment, Cognitive-Behavioral (ICD-10-PCS; principal; 2020-07-02)
DX: F11.20 Opioid dependence, uncomplicated (principal); F10.20 Alcohol dependence, uncomplicated; F17.210 Nicotine dependence, cigarettes, uncomplicated; F19.282 Other psychoactive substance dependence with psychoactive substance-induced sleep disorder; F19.24 Other psychoactive substance dependence with psychoactive substance-induced mood disorder; B18.2 Chronic viral hepatitis C; M54.5 Low back pain; L85.3 Xerosis cutis; M24.541 Contracture, right hand; R26.89 Other abnormalities of gait and mobility; R63.4 Abnormal weight loss; Z68.21 Body mass index [BMI] 21.0-21.9, adult; Z87.828 Personal history of other (healed) physical injury and trauma; Z99.89 Dependence on other enabling machines and devices
CPT/HCPCS: 36415; 87389; C9803; U0003

== ENCOUNTER 2021-02-13 13:59 | Inpatient (IN) | payer OTHER ==
[2021-02-13 15:02] VITALS: BMI 22.5
[2021-02-13] MEDS ORDERED: IBUPROFEN 400 MG TABLET (FP) PO PRN (15:10)
[2021-02-13] MEDS ORDERED: NICOTINE 10 MG CARTRIDGE (INHALER) IH PRN (15:10)
[2021-02-13] MEDS ORDERED: ACETAMINOPHEN 325 MG TABLET (FP) PO PRN ×2 (15:10)
[2021-02-13] MEDS ORDERED: MAGNESIUM CITRATE 300 ML BOTTLE PO PRN (15:10)
[2021-02-13] MEDS ORDERED: NICOTINE POLACRILEX 2 MG GUM BUC PRN (15:10)
[2021-02-13] MEDS ORDERED: METHOCARBAMOL 500 MG TABLET PO PRN (15:10)
[2021-02-13] MEDS ORDERED: cloNIDine HCL 0.1 MG TABLET PO PRN (15:10)
[2021-02-13] MEDS ORDERED: methaDONE HCL 10 MG TABLET (FOR DETOX USE ONLY) PO ONE (15:10)
[2021-02-13] MEDS ORDERED: ONDANSETRON *ODT* 4 MG TABLET SL PRN (15:10)
[2021-02-13] MEDS ORDERED: MAG HYDROX/AL HYDROX/SIMETH 30 ML UNIT-DOSE CUP PO PRN (15:10)
[2021-02-13] MEDS ORDERED: BISMUTH SUBSALICYLATE 524 MG/30 ML PO PRN (15:10)
[2021-02-13] MEDS ORDERED: MAGNESIUM HYDROX 2400MG/30ML ORAL SUSPENSION 30 ML CUP PO PRN (15:10)
[2021-02-13] MEDS ORDERED: MENTHOL/PHENOL 1 EACH UD MM PRN (15:10)
[2021-02-13] MEDS: hydrOXYzine PAMOATE 25 MG CAPSULE (FP) PO SCH ×2 (17:52→22:35)
[2021-02-13 18:08] LABS: HEMATOCRIT 39.4 % (35.4-49); HEMOGLOBIN 13.5 GM/dL (11.7-16.9); MCHC 34.2 g/dl (32.0-35.9); MEAN CELL VOLUME 90.4 fl (80-96); MEAN PLT VOLUME 7.5 fl (7.5-11.1); PLATELET COUNT 278 10^3/uL (134-434); RBC 4.36 M/mm3 (4.00-5.60); RDW 14.9 % (11.9-15.9); WHITE BLOOD COUNT 6.2 K/mm3 (4.0-10.0)
[2021-02-13 18:12] LABS: ALBUMIN 3.5 g/dl (3.4-5.0); BLOOD UREA NITROGEN 8.3 mg/dL (7-18); CALCIUM 8.9 mg/dL (8.5-10.1)
[2021-02-13 18:16] LABS: CREATININE 0.6 mg/dL (0.55-1.3)
[2021-02-13 18:17] LABS: BILIRUBIN,TOTAL 0.8 mg/dL (0.2-1)
[2021-02-13 18:18] LABS: TOT PROT 9.1 g/dl (6.4-8.2)
[2021-02-13] MEDS ORDERED: MELATONIN 5 MG TABLETS PO SCH (22:00)
[2021-02-13] MEDS ORDERED: THIAMINE HCL 100 MG TABLET (FP) PO SCH (22:00)
[2021-02-14] MEDS: hydrOXYzine PAMOATE 25 MG CAPSULE (FP) PO SCH ×3 (07:01→14:17)
[2021-02-14] MEDS ORDERED: methaDONE HCL 10 MG TABLET (FOR DETOX USE ONLY) ONE (09:01)
[2021-02-14] MEDS ORDERED: diazePAM 5 MG TABLET PO PRN (09:45)
[2021-02-14] MEDS ORDERED: PRENATAL VITAMINS W/ FOLIC ACID TABLET (FP) PO SCH (10:00)
[2021-02-14] MEDS ORDERED: diazePAM 5 MG TABLET PO SCH (11:00)
[2021-02-14 13:01] VITALS: PULSE 66
[2021-02-14 17:52] VITALS: BP 126/79; TEMP 97.3
[2021-02-15] MEDS ORDERED: methaDONE HCL 10 MG TABLET (FOR DETOX USE ONLY) PO ONE (10:00)
[2021-02-16] MEDS ORDERED: diazePAM 5 MG TABLET PO SCH (06:00)
[2021-02-17] MEDS ORDERED: diazePAM 5 MG TABLET PO SCH (06:00)
[2021-02-17] MEDS ORDERED: methaDONE HCL 10 MG TABLET (FOR DETOX USE ONLY) PO ONE (10:00)
[2021-02-18] MEDS ORDERED: diazePAM 5 MG TABLET PO ONE (06:00)
== END 2021-02-14 17:43 | disposition left against medical advice (07) | DRG 770 ==
LOC: YASAS 13:59 → Y3N 15:49
PROVIDERS: ADMIT Allergy & Immunology; ATTEND Allergy & Immunology
PROC: HZ2ZZZZ Detoxification Services for Substance Abuse Treatment (ICD-10-PCS; principal; 2021-02-13)
DX: F11.23 Opioid dependence with withdrawal (principal); F10.230 Alcohol dependence with withdrawal, uncomplicated; F17.210 Nicotine dependence, cigarettes, uncomplicated; B18.2 Chronic viral hepatitis C; Z59.01 Sheltered homelessness
CPT/HCPCS: 36415; 80053; 85027; 86780; C9803; U0003; U0005

== ENCOUNTER 2021-06-14 14:37 | Inpatient (IN) | payer OTHER ==
[2021-06-14] MEDS ORDERED: MAGNESIUM HYDROX 2400MG/30ML ORAL SUSPENSION 30 ML CUP PO PRN (15:37)
[2021-06-14] MEDS ORDERED: IBUPROFEN 400 MG TABLET (FP) PO PRN (15:37)
[2021-06-14] MEDS ORDERED: BISMUTH SUBSALICYLATE 524 MG/30 ML PO PRN (15:37)
[2021-06-14] MEDS ORDERED: ACETAMINOPHEN 325 MG TABLET (FP) PO PRN ×2 (15:37)
[2021-06-14] MEDS ORDERED: cloNIDine HCL 0.1 MG TABLET PO PRN (15:37)
[2021-06-14] MEDS ORDERED: MAG HYDROX/AL HYDROX/SIMETH 30 ML UNIT-DOSE CUP PO PRN (15:37)
[2021-06-14] MEDS ORDERED: methaDONE HCL 10 MG TABLET (FOR DETOX USE ONLY) PO ONE ×2 (15:37→22:45)
[2021-06-14] MEDS ORDERED: ONDANSETRON *ODT* 4 MG TABLET SL PRN (15:37)
[2021-06-14] MEDS ORDERED: NICOTINE 10 MG CARTRIDGE (INHALER) IH PRN (15:37)
[2021-06-14] MEDS ORDERED: MENTHOL/PHENOL 1 EACH UD MM PRN (15:37)
[2021-06-14] MEDS ORDERED: MAGNESIUM CITRATE 300 ML BOTTLE PO PRN (15:37)
[2021-06-14 15:48] VITALS: BMI 21.7
[2021-06-14] MEDS ORDERED: MELATONIN 5 MG TABLETS PO SCH (22:00)
[2021-06-14] MEDS: PRENATAL VITAMINS W/ FOLIC ACID TABLET (FP) PO SCH (22:34)
[2021-06-14] MEDS: THIAMINE HCL 100 MG TABLET (FP) PO SCH (22:34)
[2021-06-14] MEDS: hydrOXYzine PAMOATE 25 MG CAPSULE (FP) PO SCH ×2 (22:34→23:48)
[2021-06-14] MEDS: METHOCARBAMOL 500 MG TABLET PO PRN (22:35)
[2021-06-15] MEDS: hydrOXYzine PAMOATE 25 MG CAPSULE (FP) PO SCH ×5 (05:08→22:07)
[2021-06-15] MEDS ORDERED: methaDONE HCL 10 MG TABLET (FOR DETOX USE ONLY) ONE (09:32)
[2021-06-15] MEDS: PRENATAL VITAMINS W/ FOLIC ACID TABLET (FP) PO SCH (10:20)
[2021-06-15] MEDS ORDERED: PNEUMOC 13-VAL CONJ-DIP CRM/PF 0.5 ML DISP.SYRIN IM ONE (12:00)
[2021-06-15] MEDS ORDERED: PNEUMOCOCCAL 23 VACCINE 0.5 ML VIAL IM ONE (12:00)
[2021-06-15] MEDS ORDERED: FLU VACC QS2021-22(6MOS UP)/PF 60 MCG/0.5 ML SYRINGE IM ONE (12:00)
[2021-06-15] MEDS: METHOCARBAMOL 500 MG TABLET PO PRN (18:48)
[2021-06-15] MEDS ORDERED: SUVOREXANT 10 MG TABLET PO PRN (22:00)
[2021-06-15] MEDS: THIAMINE HCL 100 MG TABLET (FP) PO SCH (22:07)
[2021-06-16] MEDS: hydrOXYzine PAMOATE 25 MG CAPSULE (FP) PO SCH ×5 (05:10→22:08)
[2021-06-16] MEDS ORDERED: methaDONE HCL 10 MG TABLET (FOR DETOX USE ONLY) PO ONE (10:00)
[2021-06-16] MEDS: PRENATAL VITAMINS W/ FOLIC ACID TABLET (FP) PO SCH (10:10)
[2021-06-16] MEDS: METHOCARBAMOL 500 MG TABLET PO PRN ×2 (10:11→22:08)
[2021-06-16] MEDS ORDERED: SUVOREXANT 10 MG TABLET PO PRN (22:00)
[2021-06-16] MEDS: THIAMINE HCL 100 MG TABLET (FP) PO SCH (22:08)
[2021-06-17] MEDS: hydrOXYzine PAMOATE 25 MG CAPSULE (FP) PO SCH ×5 (05:07→22:23)
[2021-06-17] MEDS ORDERED: methaDONE HCL 10 MG TABLET (FOR DETOX USE ONLY) ONE (08:53)
[2021-06-17] MEDS: PRENATAL VITAMINS W/ FOLIC ACID TABLET (FP) PO SCH (10:05)
[2021-06-17] MEDS: LIDOCAINE 5% TOPICAL PATCH TP SCH (10:52)
[2021-06-17] MEDS: METHOCARBAMOL 500 MG TABLET PO PRN ×2 (10:54→22:24)
[2021-06-17 12:13] LABS: ALBUMIN 3.4 g/dl (3.4-5.0); BLOOD UREA NITROGEN 15.7 mg/dL (7-18); CALCIUM 9.2 mg/dL (8.5-10.1)
[2021-06-17 12:17] LABS: CREATININE 0.7 mg/dL (0.55-1.3)
[2021-06-17 12:18] LABS: BILIRUBIN,TOTAL 0.6 mg/dL (0.2-1); TOT PROT 7.9 g/dl (6.4-8.2)
[2021-06-17 12:55] LABS: BASO % 2.8 % (0-2.0); EOS % 5.8 % (0-4.5); HEMATOCRIT 41.5 % (35.4-49); HEMOGLOBIN 14.1 GM/dL (11.7-16.9); LYMPH % 40.5 % (8-40); MCH 31.9 pg (25.7-33.7); MEAN CELL VOLUME 93.9 fl (80-96); MEAN PLT VOLUME 7.7 fl (7.5-11.1); MONO % 11.3 % (3.8-10.2); NEUT % 39.6 % (42.8-82.8); PLATELET COUNT 305 10^3/uL (134-434); RBC 4.42 M/mm3 (4.00-5.60); RDW 13.8 % (11.9-15.9); WHITE BLOOD COUNT 4.2 K/mm3 (4.0-10.0)
[2021-06-17] MEDS: THIAMINE HCL 100 MG TABLET (FP) PO SCH (22:23)
[2021-06-18] MEDS: LIDOCAINE PATCH REMOVAL MC SCH ×2 (00:22→22:12)
[2021-06-18] MEDS: hydrOXYzine PAMOATE 25 MG CAPSULE (FP) PO SCH ×5 (05:03→22:10)
[2021-06-18] MEDS ORDERED: methaDONE HCL 10 MG TABLET (FOR DETOX USE ONLY) PO ONE (10:00)
[2021-06-18] MEDS: PRENATAL VITAMINS W/ FOLIC ACID TABLET (FP) PO SCH (10:05)
[2021-06-18] MEDS: METHOCARBAMOL 500 MG TABLET PO PRN ×2 (10:05→17:55)
[2021-06-18] MEDS: LIDOCAINE 5% TOPICAL PATCH TP SCH (10:05)
[2021-06-18] MEDS: THIAMINE HCL 100 MG TABLET (FP) PO SCH (22:10)
[2021-06-18] MEDS ORDERED: SUVOREXANT 15 MG TABLET PO PRN (22:11)
[2021-06-19] MEDS: hydrOXYzine PAMOATE 25 MG CAPSULE (FP) PO SCH (05:30)
[2021-06-19] MEDS: METHOCARBAMOL 500 MG TABLET PO PRN (05:31)
[2021-06-19 08:52] VITALS: BP 147/60; PULSE 67; TEMP 97.3
== END 2021-06-19 09:50 | disposition other institution (70) | DRG 773 ==
LOC: YASAS 14:37 → Y6N 21:21
PROVIDERS: ADMIT Allergy & Immunology; ATTEND Allergy & Immunology
PROC: HZ2ZZZZ Detoxification Services for Substance Abuse Treatment (ICD-10-PCS; principal; 2021-06-14)
DX: F11.23 Opioid dependence with withdrawal (principal); F10.230 Alcohol dependence with withdrawal, uncomplicated; F14.20 Cocaine dependence, uncomplicated; F12.20 Cannabis dependence, uncomplicated; F17.210 Nicotine dependence, cigarettes, uncomplicated; F19.282 Other psychoactive substance dependence with psychoactive substance-induced sleep disorder; F19.24 Other psychoactive substance dependence with psychoactive substance-induced mood disorder; B18.2 Chronic viral hepatitis C; H54.62 Unqualified visual loss, left eye, normal vision right eye; Z87.828 Personal history of other (healed) physical injury and trauma
CPT/HCPCS: 36415; 80053; 85025; 86780; 90686; 90732; C9803-CS; G0008; G0009; U0003; U0005